=== PATIENT | female | born 1970 | race Two or more races ===

== ENCOUNTER 2018-03-14 10:29 | Outpatient (REF) | payer MEDICAID, SELFPAY ==
[2018-03-14 13:35] LABS: TSH (W/Ref FT4) 5.25 uIU/mL (0.358-3.74)
[2018-03-14 14:49] LABS: FREE T4 0.93 ng/dL (0.76-1.46)
== END 2018-03-14 10:49 ==
LOC: NCHCN 10:29
PROVIDERS: PCP Nurse Practitioner Family; Visit Provider Nurse Practitioner Family
DX: E03.9 Hypothyroidism, unspecified (principal)
CPT/HCPCS: 84439; 84443

== ENCOUNTER 2018-06-14 16:42 | Outpatient (REF) | payer MEDICAID, SELFPAY ==
[2018-06-14 19:58] LABS: TSH (W/Ref FT4) 2.61 uIU/mL (0.358-3.74)
== END 2018-06-14 17:02 ==
LOC: NCHCN 16:42
PROVIDERS: PCP Nurse Practitioner Family; Visit Provider Nurse Practitioner Family
DX: E03.9 Hypothyroidism, unspecified (principal)
CPT/HCPCS: 84443

== ENCOUNTER 2018-09-06 09:04 | Outpatient (CLI) | payer MEDICAID, SELFPAY ==
--- NOTE | 2018-09-06 14:12 | W.PREOPHP ---
Date of service: 09/06/18 Time of Service: 08:13 Assessment and Plan (1) AC (acromioclavicular) joint arthritis: Current visit: Yes Status: Deleted Patient is explained the surgical procedure typical postop course and main complication if any to be surgical site infection. She is given an overview that she will be dispensed a sling postop and discontinue this as her pain permits PT may be employed assisting her gaining range of motion or she can do home exercises like wall walks, pendulum swings or broomstick exercises.. 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 She was initially worked up with x-rays followed by an MRI that showed AC joint narrowing as the only pathology. She is gone the full gamut of conservative therapy consisting of rounds of PT, healthcare manager, home exercise plan injective therapy of AC joint and subacromial bursa all not fully resolving the pain she feels with internal rotation and any work out away from her body. Her pain impedes her active supporting life of biking running and swimming. Evaluation in Dr. Stein's office showed AC joint tenderness with palpable clicking indicating the need to decompress that joint to resolve her pain fully. Pertinent Surgical Information Denies previous medical history of: stroke, TIA, [place], use of sublingual nitroglycerin, GERD, seizures, diabetes, thyroid disease, sleep apnea, liver disease, hepatitis, hematologic disorders Denies previous complications from surgery or anesthesic agents with respect to high fever, prolonged vomiting and difficulty waking up Review of Systems Constitutional Denies fever(s) and Denies headache(s) ENT Denies headache(s), Denies nasal congestion, Denies nasal discharge and Denies sore throat Cardiovascular Denies chest pain, Denies chest pain with activity, Denies palpitations, Denies dyspnea on exertion, Denies orthopnea and Denies paroxysmal nocturnal dyspnea Respiratory Denies cough, Denies excessive phlegm production, Denies pain on inspiration and Denies dyspnea on exertion Gastrointestinal Denies abdominal pain, Denies melena, Denies hematochezia, Denies nausea and Denies vomiting Genitourinary Denies hematuria, Denies urinary frequency and Denies dysuria Comments: Denies burning sensation with urination no recent hx of excessive wheezing/sob Musculoskeletal Reports as per HPI Neurologic Denies headache(s) Psychiatric Denies anxiety and Denies depression Endocrine Denies palpitations Comments: Denies any unplanned weight changes PFSH Medical History AC (acromioclavicular) joint arthritis (Acute) History of hypothyroidism (Chronic) Asthma (Chronic) Anxiety (Chronic) Iliotibial band syndrome of left side (Resolved) Colon polyp (Acute) Gluten intolerance (Acute) Castillo neuroma (Acute) Upper back pain (Acute) Personal history of anxiety disorder (Acute) Eczema (Acute) History of fracture of upper extremity (Acute) Surgical History Status post correction of deviated nasal septum (Resolved) History of tonsillectomy (Resolved) Hx of arthroscopy of right knee (Acute) Family History Other Alcohol abuse Cancer Clotting disorder Diabetes Hyperlipidemia Hypertension Social History Smoking/Tobacco Use Status: Never Details: rare etoh< 1x month Drug use: Never Substance use type: does not use Do you feel safe in your relationship?: Yes Meds Home Medications Medication Instructions Recorded Confirmed Type Blackcohosh 1 ea PO PRN PRN 06/04/14 09/06/18 History pbadgwrs-jdogo-dat 2-C-D3-dav 1 ea PO BID 06/04/14 09/06/18 History [Cswoxnmctw-Vtsbgbujbar-Pga Tab] cnekh-bv-4-cqv-cil-nqehiut-ast 1 ea PO DAILY 06/04/14 09/06/18 History [Krill Oil 1,000 Mg Softgel] methylphenidate HCl [Concerta] 27 mg PO DAILY tab-cap 06/04/14 09/06/18 History multivitamin [Multi-Day Vitamins] 1 ea PO DAILY 06/04/14 09/06/18 History fluticasone propionate [Flovent 110 mcg INHALATION BID #2 inhaler 07/04/14 09/06/18 History 110mcg] loratadine 10 mg PO HS 07/09/14 09/06/18 History diclofenac sodium [Voltaren] 2 g TOPICAL QID script 07/24/14 09/06/18 History levalbuterol tartrate [Xopenex Hfa] 45 mcg INHALATION PRN PRN 07/30/14 09/06/18 History Ashwagandha 500 mg PO DAILY 08/13/16 09/06/18 History lorazepam 1 mg PO Q8H PRN PRN #20 tab 08/13/16 09/06/18 Rx VITAMIN D 1,000 units PO BID 09/06/18 09/06/18 History montelukast 10 mg tablet 10 mg PO QPM 09/06/18 09/06/18 History naproxen sodium [Aleve] 220 mg PO BID PRN 09/06/18 09/06/18 History rye grass extract 500 mg-quercetin tab PO tab 09/06/18 09/06/18 History 250 mg tablet vitamin B complex tablet 1 tab PO BID tab 09/06/18 09/06/18 History Allergies Allergy/AdvReac Type Severity Reaction Status Date / Time formoterol [From Dulera] Allergy Severe Anaphylaxsi Unverified 09/06/18 09:20 s latex Allergy Severe rash castle Unverified 09/06/18 09:20 mometasone furoate Allergy Severe Anaphylaxsi Unverified 09/06/18 09:20 [From Dulera] s influenza virus vaccine, Allergy Intermediate rash Unverified 09/06/18 09:20 specific vomits [influenza virus swells up vacc,specific] amoxicillin trihydrate AdvReac Intermediate vomit Unverified 09/06/18 09:20 [From Augmentin] neomycin AdvReac Intermediate blood Unverified 09/06/18 09:20 blisters potassium clavulanate AdvReac Intermediate vomit Unverified 09/06/18 09:20 [From Augmentin] Penicillins AdvReac Mild vomits Unverified 09/06/18 14:34 myocins AdvReac Intermediate vomits Uncoded 09/06/18 09:20 Exam Const General: cooperative HENMT Throat: posterior oropharynx normal Eyes General: appearance normal, both eyes and all related structures Conjunctivae: conjunctivae normal Sclera: sclerae normal Neck Neck: no JVD Carotids: normal carotid upstroke and no bruits Resp Effort & Inspection: normal respiratory effort and able to speak in complete sentences Auscultation: clear to auscultation bilaterally, no rales and no rhonchi Cardio Rate: regular rate Heart Sounds: S1 normal, S2 normal and no murmurs Bruits: no abdominal aortic bruits Pulses: normal peripheral pulses Other: No pulsatile mass noted with palpation over the abdominal aorta . had single faint exspiratory wheeze.left shoider shows full rom with excellent resisted rotator cuff strength. She has point tenderness with a palpable click overlying her AC joint. She also displays a positive scarf test and cross arm abduction test GI Palpation: soft and no hepatosplenomegaly Auscultation: normal bowel sounds General: No CVA tenderness Extrem General: no pedal edema
== END 2018-09-06 09:24 ==
PROVIDERS: PCP Nurse Practitioner Family; Visit Provider Orthopaedic Surgery
DX: Z01.818 Encounter for other preprocedural examination (principal)

== ENCOUNTER 2018-09-07 11:33 | Day surgery (SDC) | payer MEDICAID, SELFPAY ==
[2018-09-07] VITALS (7 sets, daily range): BP systolic 122–139; BP diastolic 73–80; PULSE 69–83; RESP 12–20; TEMP 36.2–36.7; O2SAT 97–100
[2018-09-07] MEDS: Lactated Ringers 1,000 ML 80 ML IV (12:20)
[2018-09-07] MEDS: ceFAZolin 2 GM/50 ML BAG IVPB (13:10)
--- NOTE | 2018-09-07 13:47 | W.PM.DSUDISC ---
Discharge Plan Disposition Patient Disposition: HOME Condition: Good Discharge Details Reason For Visit: excision L distal clavicle Attending Provider: Louis Stein Primary Care Provider: Reynaldo Gibbs Home Meds and New Rx's Prescriptions: New hydrocodone-acetaminophen 5-325 mg tablet 1 tab PO Q6H PRN (Reason: pain) Qty: 20 RF: 0 ibuprofen 800 mg tablet 800 mg PO TID Qty: 30 RF: 0 Continued vitamin B complex [B Complex-Vitamin B12] tablet 1 tab PO BID RF: 0 montelukast [Singulair] 10 mg tablet 10 mg PO QPM RF: 0 rye grass extract-quercetin 500-250 mg tablet PO RF: 0 methylphenidate HCl [Concerta] 27 MG tablet extended release 24hr 27 mg PO DAILY RF: 0 multivitamin [Multi-Day] 1 EACH tablet 1 ea PO DAILY RF: 0 Nkfeflen-Hwfxss-SUK with vit D 1 EACH tablet 1 ea PO BID RF: 0 vyogy-ov-5-lke-dws-ldzzruy-ast [krill oil] 1 EACH capsule 1 ea PO DAILY RF: 0 BLACKCOHOSH 1 ea PO PRN PRNRF: 0 Flovent HFA 12 GM HFA aerosol inhaler 110 mcg Inhalation BID Qty: 2 RF: 0 loratadine 10 MG tablet,disintegrating 10 mg PO HS RF: 0 diclofenac sodium [Voltaren] 100 GM gel 2 g Topical QID RF: 0 VITAMIN D 1,000 units PO BID RF: 0 levalbuterol tartrate [Xopenex HFA] 200 PUFF HFA aerosol inhaler 45 mcg Inhalation PRN PRNRF: 0 naproxen sodium [Aleve] 220 mg Capsule 220 mg PO BID PRNRF: 0 magnesium oxide,aspartate,citr 400 mg Capsule 400 mg PO RF: 0 bee pollen 550 mg Capsule PO RF: 0 Ashwagandha 500 mg PO DAILY RF: 0 lorazepam 1 MG tablet 1 mg PO Q8H PRN PRNQty: 20 RF: 0 Discharge Instructions Additional Instructions: Sling for comfort. Discontinue sling as soon as your discomfort allows. Apply cryocuff to L shoulder continuously overnite tonite. Tomorrow, start to use 4 times/day for 1 hour each time. May remove dressings, shower, and get incision wet after 72 hours. Leave incision uncovered when it is dry and sealed. May move and use L arm as much as your pain allows. Follow up with in 2 weeks. Take ibuprofen as prescribed for 10 days. Take hydrocodone as needed for breakthru pain. Referrals: Louis Stein MD [ [facility] STAFF PHYSICIAN] - (f/u in 2 weerks) Equipment/Supplies: Sling Activity:: Activity as Tolerated Remove Dressings/Wound Care:: 72 hours Shower/Bathe:: 72 hours Diet:: As Tolerated Discharge Orders Discharge Orders: Discharge Order (Routine); Ordered 09/07/18 Ordered By: Louis Stein DS: Diagnosis Discharge Diagnosis (1) AC (acromioclavicular) joint arthritis: Status: Acute
[2018-09-07] MEDS: fentaNYL 100 MCG/2 ML VIAL IVP ×2 (14:20→14:49)
[2018-09-07] MEDS: HYDROcodone 5/Acetaminophen 325 TAB PO (15:49)
--- NOTE | 2018-09-07 19:58 | ROE_ITS ---
DATE OF PROCEDURE: September 07, 2018 PREOPERATIVE DIAGNOSIS: DJD AC joint on the left. POSTOPERATIVE DIAGNOSIS: DJD AC joint on the left. PROCEDURE: Excision distal clavicle left. SURGEON: Louis Stein M.D. DISTRIBUTION A CLASS LINEMAN: Ciara Espinoza PA-C ANESTHESIA: General, Sridhar Preston CRNA INDICATIONS: This is a 47-year-old white female with over a year's history of left shoulder pain. T his had responded for only short periods of time to ultrasound-guided injection of her AC joint and s ubacromial space injection on the left. The pain continued to increase as time went on. MRI scan fa iled to show any rotator cuff pathology. All the pathology was in the AC joint. Excision of the dis percy clavicle was advised to alleviate her pain on a permanent basis. The risks and complications of the procedure were explained to the patient in detail preoperatively. PROCEDURE: The patient was taken to the Operating Room on 09/07/18. She was placed supine on the oper ating table and a general anesthetic was administered. She was then placed in the [facility] and the left shoulder was prepped and draped free in the usual sterile fashion. An incision was made on the superior aspect of the left shoulder centered over the AC joint. The incision was about 3 inches long. The incision was carried down through the skin and subcu to the AC joint capsule. Th e AC joint capsule was longitudinally incised and the distal clavicle was subperiosteally exposed. T he distal centimeter of the clavicle was transected and the distal end of the clavicle was excised. There was no normal articular cartilage left on the end of the distal clavicle. The resected end of the clavicle was then packed with bone wax. The wound was irrigated with saline solution. The wound margins were infiltrated with 0.5% Marcaine with epinephrine solution down to the AC joint capsule and then an additional 0.5% Marcaine with epinephrine solution was instilled into the subacro mial bursa. The AC joint capsule and periosteum over the distal clavicle were approximated with inte rrupted ddhppn-cf-sivzi sutures of #1 Vicryl suture material. The subcu was approximated with a few interrupted #2-0 Vicryl sutures, then a running subcuticular suture of #4-0 Vicryl was performed and, in addition, tissue glue was applied to complete the closure. Sterile dressings were applied. The left arm was placed in a sling. Her anesthesia was reversed without complications. She was discharg ed to the Recovery Room in good condition. The patient was discharged home from the Day Surgery Unit when fully recovered from her general anest hesia. She was given instructions to use the sling for comfort but to wean herself out of her sling as soon as discomfort subsides. She is to use a Cryo/Cuff to the left shoulder continuously overnieves willoughby. Tomorrow she will start using the Cryo/Cuff four times a day for an hour each time. She may remove her dressings, shower and get her incision wet in 72 hours. She can take ibuprofen for mi ld pain. She is given a prescription for breakthrough pain of hydrocodone/APAP 5 mg/325 mg, 1 tablet every 6 hours as needed. She is given a note to stay out of work until she returns for follow-up rama Stein in two weeks.
== END 2018-09-07 16:33 | disposition home or self-care (01) ==
PROVIDERS: PCP Nurse Practitioner Family; Visit Provider Orthopaedic Surgery
PROC: (CPT 23120; principal; 2018-09-07 13:00)
DX: M19.012 Primary osteoarthritis, left shoulder (principal)
CPT/HCPCS: 23120; 81025; J0690; J1100; J1885; J2250; J2405; J3010

== ENCOUNTER 2019-01-17 10:01 | Emergency (ER) | payer MEDICAID, SELFPAY ==
[2019-01-17] VITALS (27 sets, daily range): BP systolic 103–122; BP diastolic 54–73; PULSE 54–68; RESP 10–23; TEMP 37.1; O2SAT 96–100
--- NOTE | 2019-01-17 10:20 | ED.GENADUL_ITS ---
Discharge Plan Disposition Patient Disposition: HOME Condition: Stable Discharge Details Chief Complaint: RespSymp Clinical Impression: Chest pain Primary Care Provider: Reynaldo Gibbs ED Provider: Zeke Boyle Home Meds and New Rx's Prescriptions: No Action vitamin B complex [B Complex-Vitamin B12] tablet 1 tab PO BID RF: 0 montelukast [Singulair] 10 mg tablet 10 mg PO QPM RF: 0 rye grass extract-quercetin 500-250 mg tablet PO RF: 0 methylphenidate HCl [Concerta] 27 MG tablet extended release 24hr 27 mg PO DAILY RF: 0 multivitamin [Multi-Day] 1 EACH tablet 1 ea PO DAILY RF: 0 Lvrreaml-Nplwyq-WCN with vit D 1 EACH tablet 1 ea PO BID RF: 0 aecvd-ox-0-uaz-ynq-zntzzoy-ast [krill oil] 1 EACH capsule 1 ea PO DAILY RF: 0 BLACKCOHOSH 1 ea PO PRN PRNRF: 0 Flovent HFA 12 GM HFA aerosol inhaler 110 mcg Inhalation BID Qty: 2 RF: 0 loratadine 10 MG tablet,disintegrating 10 mg PO HS RF: 0 diclofenac sodium [Voltaren] 100 GM gel 2 g Topical QID RF: 0 VITAMIN D 1,000 units PO BID RF: 0 epinephrine [EpiPen 2-Roberto] 0.3 mg/0.3 mL auto-injector 0.3 mg IM ONCE RF: 0 levalbuterol tartrate [Xopenex HFA] 45 mcg/actuation HFA aerosol inhaler 2 inh IH Q6H RF: 0 thyroid (pork) [[place] Thyroid] 30 mg tablet 30 mg PO DAILY RF: 0 Biotene Dry Mouth Oral Rinse mouthwash 15 ml MM BID-QID PRNRF: 0 resveratrol-quercetin 100-100 mg tablet 50 tab PO DAILY RF: 0 meclizine 12.5 mg tablet,chewable 25 mg PO PRN RF: 0 desloratadine 5 mg tablet 5 mg PO DAILY RF: 0 naproxen sodium [Aleve] 220 mg Capsule 220 mg PO BID PRNRF: 0 magnesium oxide,aspartate,citr 400 mg Capsule 400 mg PO RF: 0 bee pollen 550 mg Capsule PO RF: 0 ibuprofen 800 mg tablet 800 mg PO TID Qty: 30 RF: 0 lorazepam 1 MG tablet 1 mg PO Q8H PRN PRNQty: 20 RF: 0 Discharge Instructions Instructions: Chest Pain (ED) Additional Instructions: follow up with your primary care provider within 1 week if you feel you are becoming more ill, have worsening shortness of breath or persistent vomit return to the emergency department Medical Decision Making 48 yo female with hx of bicuspid aortic valve, vestibular migraine, anxiety, who comes in feeling a sharp pain in the left anterior chest. She states she has been feeling as though she is having an allergic reaction because her throt feels as though it is closing and she may pass out. She has no new meds or foods and arrives appearing anxious HD stable. She has no rashes, no gi symptoms and clera lungs with no dyspnea, stridor or drooling and normal oropharynx with no pain over hyoid or restricted neck movements. The pain in her chest is in the left anterior and seems to worsening with palpation. she has normal vascular exam and no tearing back pain so doubt dissection. Will obtain CTA to eval for possible PE given pain is pleuritic and obtain troponin, ecg reassuring and heart score is 1. I suspect a component of anxiety given her complaints and apperaance so will also tx with ativan. She has no findings on exam to suggest anaphylaxis, rpa, well logging captain, epiglotitis. pt remains stable, sstates she feels lightheaded, labs tele and imaging all unremarkable. will obtain delta troponin and ecg repeat trop and ecg unremarkable. She remains stable. Will have her f/u with her pcp and return precautions Differential Diagnosis acs, pe, dissection, ptx Imaging Data Radiologic Study: Attestation: I personally reviewed and interpreted this imaging study as follows: Imaging: CT Scan Radiologist's impression: no acute findings per Dr. Hsieh Lab Data Lab results reviewed: Yes I reviewed the patient's lab results. ECG Data Attestation: I personally reviewed and interpreted this ECG (s) as follows: Prior ECG tracings: not available for review Interpretation: sinus rhythm, rate of 63, pr 158, no acute st t wave ischemic findings 2nd ekg shows sinus rhythm, rate of 54, no acute st tw ave changes HPI General Mode of arrival: wheelchair . Date/Time Provider Initiated Documentation: 01/17/19 10:16 . Limitations to Documentation: no limitations . Information obtained by: patient . History of Present Illness 48 year old F presents to the emergency department with the chief complaint of chest pain, described as moderate, Quality is described as stabbing, and is localized to the chest. Patient reports no radiation. No relieving factors improve symptom(s), No exacerbating factors reported . Patient did receive the following treatments prior to arrival, none Related Data Home Medications Medication Instructions Recorded Confirmed Blackcohosh 1 ea PO PRN PRN 06/04/14 11/24/18 Cijciuov-Bfogma-OPV with vit D 1 ea PO BID 06/04/14 11/24/18 vggsg-xq-8-rds-sie-ioswqrb-ast 1 ea PO DAILY 06/04/14 11/24/18 [krill oil] methylphenidate HCl [Concerta] 27 mg PO DAILY tab-cap 06/04/14 11/24/18 multivitamin [Multi-Day] 1 ea PO DAILY 06/04/14 11/24/18 Flovent HFA 110 mcg INHALATION BID #2 inhaler 07/04/14 11/24/18 loratadine 10 mg PO HS 07/09/14 11/24/18 diclofenac sodium [Voltaren] 2 g TOPICAL QID script 07/24/14 11/24/18 lorazepam 1 mg PO Q8H PRN PRN #20 tab 08/13/16 11/24/18 VITAMIN D 1,000 units PO BID 09/06/18 11/24/18 montelukast 10 mg tablet 10 mg PO QPM 09/06/18 11/24/18 naproxen sodium [Aleve] 220 mg PO BID PRN 09/06/18 11/24/18 rye grass extract 500 mg-quercetin tab PO tab 09/06/18 11/24/18 250 mg tablet vitamin B complex 1 tab PO BID tab 09/06/18 11/24/18 bee pollen mg PO 09/07/18 11/24/18 ibuprofen 800 mg PO TID #30 tab 09/07/18 11/24/18 magnesium oxide,aspartate,citr 400 mg PO 09/07/18 11/24/18 desloratadine 5 mg tablet 5 mg PO DAILY 10/25/18 11/24/18 epinephrine 0.3 mg/0.3 mL 0.3 mg IM ONCE 10/25/18 11/24/18 injection, auto-injector levalbuterol tartrate 45 2 inh IH Q6H 10/25/18 11/24/18 mcg/actuation aerosol inhaler meclizine 12.5 mg chewable tablet 25 mg PO PRN tab 10/25/18 11/24/18 resveratrol-quercetin 100 mg-100 50 tab PO DAILY tab 10/25/18 11/24/18 mg tablet saliva substitute combo no.9 15 ml MM BID-QID PRN 10/25/18 11/24/18 thyroid (pork) 30 mg tablet 30 mg PO DAILY 10/25/18 11/24/18 Previous Rx's Medication Instructions Recorded lorazepam 1 mg PO Q8H PRN PRN #20 tab 08/13/16 ibuprofen 800 mg PO TID #30 tab 09/07/18 Allergies Allergy/AdvReac Type Severity Reaction Status Date / Time formoterol [From Dulera] Allergy Severe Anaphylaxsi Unverified 01/17/19 10:38 s latex Allergy Severe rash castle Unverified 01/17/19 10:38 mometasone furoate Allergy Severe Anaphylaxsi Unverified 01/17/19 10:38 [From Dulera] s influenza virus vaccine, Allergy Intermediate rash Unverified 01/17/19 10:38 specific vomits [influenza virus swells up vacc,specific] amoxicillin trihydrate AdvReac Intermediate vomit Unverified 01/17/19 10:38 [From Augmentin] neomycin AdvReac Intermediate blood Unverified 01/17/19 10:38 blisters potassium clavulanate AdvReac Intermediate vomit Unverified 01/17/19 10:38 [From Augmentin] Penicillins AdvReac Mild vomits Unverified 01/17/19 10:38 WALNUTS Allergy Severe Uncoded 01/17/19 10:38 myocins AdvReac Intermediate vomits Uncoded 01/17/19 10:38 Review of Systems Review of Systems All systems reviewed & are unremarkable except as noted in HPI and below Constitutional Denies chills, Denies fever(s) and Denies weakness Eyes Denies loss of vision ENT Denies change in voice Cardiovascular Denies chest pain and Denies dyspnea Respiratory Denies cough and Denies dyspnea Gastrointestinal Denies abdominal pain, Denies nausea and Denies vomiting Genitourinary Denies dysuria Musculoskeletal Denies joint swelling Integumentary/Breasts Denies rash Neurologic Denies loss of vision and Denies weakness Psychiatric Denies depression Endocrine Denies cold intolerance and Denies heat intolerance Allergic/Immunologic Denies urticaria PFSH Medical History (Updated 11/24/18 @ 12:49 by Kelly Lara) Abnormal colonoscopy (Acute) AC (acromioclavicular) joint arthritis (Acute) ADD (attention deficit disorder) (Chronic) Anxiety (Chronic) Asthma (Chronic) Bicuspid aortic valve determined by imaging (Chronic) Colon polyp (Acute) Eczema (Acute) Gluten intolerance (Acute) History of fracture of upper extremity (Acute) History of hypothyroidism (Chronic) Iliotibial band syndrome of left side (Resolved) Migraine headache with aura (Chronic) Castillo neuroma (Acute) Personal history of anxiety disorder (Acute) Upper back pain (Acute) Surgical History (Updated 09/07/18 @ 11:56 by Fanta Sanchez) History of tonsillectomy (Resolved) Hx of arthroscopy of right knee (Acute) Hx of foot surgery (Acute) Status post correction of deviated nasal septum (Resolved) Family History (Updated 09/06/18 @ 09:32 by Kourtney Bro RN) Other Alcohol abuse Cancer Clotting disorder Diabetes Hyperlipidemia Hypertension Social History (Updated 11/24/18 @ 10:39 by Linda Martin LPN) Smoking/Tobacco Use Status: Never Alcohol Intake: current Alcohol Intake frequency: holidays/special occasions only Alcohol type: hard liquor Details: rare etoh< 1x month Drug use: Never Substance use type: does not use Details: alcohol, 08/21/18 Do you feel safe at home: Yes Do you feel safe in your relationship?: Yes Additional Social history: single at this time Exam Const Orientation: alert HENMT Head: normal to inspection Ears: external ears normal General nose exam: external nose normal Mouth: moist mucous membranes Eyes General: appearance normal, both eyes and all related structures Neck Neck: normal visual inspection Resp Effort & Inspection: normal respiratory effort and able to speak in complete sentences Cardio Rate: regular rate Skin General skin exam: no rashes or lesions noted Neuro General: alert and oriented x3 Extrem General: normal to inspection Psych Mental Status: mental status grossly normal
[2019-01-17] MEDS: Normal Saline Flush 10 ML SYR IVP ×2 (10:37→10:44)
[2019-01-17 10:41] LABS: Abs Immature Grans 0.01 k/cumm (0.0-0.09); Absolute Basophil Count 0.05 k/cumm (0.0-0.2); Absolute Eosinophil Count 0.17 k/cumm (0.0-0.7); Absolute Lymphocyte Count 1.89 k/cumm (1.2-3.4); Absolute Monocyte Count 0.59 k/cumm (0.11-0.7); Absolute Neutrophil Count 3.19 k/cumm (1.2-6.7); Basophils % 0.8; Eosinophils % 2.9; HCT 40.8 % (36.0-46.0); HGB 13.7 g/dL (12.0-15.5); Immature Grans % 0.2; Mean Corp. HGB Concentration 33.6 g/dL (32.0-36.0); Mean Corpuscular Hemoglobin 31.1 pg (27.0-33.0); Mean Corpuscular Volume 92.7 fL (80-95); Mean Platelet Volume 9.7 fL (8.0-11.0); Neutrophils % 54.1; Platelet Count 240 x1000/uL (130-400); RBC Distribution Width 11.8 % (11.7-14.6)
[2019-01-17] MEDS: LORazepam 2 MG/ML VIAL 0.5 MG IVP (10:43)
[2019-01-17 10:57] LABS: ALT 17 U/L (12-78); AST 10 U/L (15-37); Albumin 3.5 g/dL (3.4-5.0); Alkaline Phosphatase 54 U/L (46-116); Anion Gap 7.4 mmol/L (3-11); BUN 10 mg/dL (7-18); Bilirubin, Total 0.4 mg/dL (0.2-1.0); CO2 28.6 mmol/L (21.0-32.0); CREATININE 1.03 mg/dL (0.55-1.02); Calcium 8.8 mg/dL (8.5-10.1); Chloride 105 mmol/L (98-107); Estimated GFR 57.69 (mL/min/1.73m2); Glucose 103 mg/dL (70-100); Potassium 3.9 mmol/L (3.5-5.1); Sodium 141 mmol/L (136-145); Total Protein 6.7 g/dL (6.4-8.2)
[2019-01-17 10:58] LABS: Troponin I < 0.05 ng/mL (0.00-0.06)
[2019-01-17] MEDS: Omnipaque 350 MG/ML 100 ML BTL 63 ML IJ (11:16)
--- NOTE | 2019-01-17 11:20 | DI.CT_ITS ---
SYMPTOM/DIAGNOSIS: LEFT SIDED PLEURITIC CHEST PAIN CT ANGIOGRAPHY CHEST: 01/17 CT angiography was performed with multi slice acquisition and multi planar and 3D reconstruction. CT angiography of the chest was performed with a bolus infusion of 100 cc Omnipaque 350. Images obtained through the upper abdomen show unremarkable appearance of visualized portions of the liver, spleen, pancreas, adrenals and kidneys. Gallbladder and bile ducts are CT normal. No mediastinal mass or adenopathy. Tracheobronchial tree appears intact. Normal cardiac size. No pleural effusion. Lungs are clear. No evidence of pulmonary embolic disease. Thoracic aorta and major branch vessels are normal. CONCLUSION: No evidence of pulmonary embolic disease.
[2019-01-17 14:06] LABS: Troponin I < 0.05 ng/mL (0.00-0.06)
--- NOTE | 2019-01-18 05:08 | NUR.NOTE ---
Nursing Note: faxed referal to dr card on 01/18/19
== END 2019-01-17 14:21 | disposition home or self-care (01) ==
PROVIDERS: Emergency Provider Emergency Medicine; PCP Nurse Practitioner Family
DX: R07.81 Pleurodynia (principal); F41.9 Anxiety disorder, unspecified; Q23.1 Congenital insufficiency of aortic valve
CPT/HCPCS: 36415; 71275; 80053; 93005; 96374; 99285; 83735; 84484; 85025; 93010; J2060; J3490

== ENCOUNTER 2019-01-24 11:56 | Outpatient (CLI) | payer MEDICAID, SELFPAY ==
[2019-01-24 13:18] LABS: TSH (W/Ref FT4) 3.02 uIU/mL (0.36-3.74)
== END 2019-01-24 12:16 ==
PROVIDERS: PCP Nurse Practitioner Family; Visit Provider Nurse Practitioner Family
DX: E03.9 Hypothyroidism, unspecified (principal)
CPT/HCPCS: 36415; 84443

== ENCOUNTER 2019-03-30 16:50 | Outpatient (CLI) | payer MEDICAID, SELFPAY ==
[2019-03-30 18:33] LABS: TSH 8.11 uIU/mL (0.36-3.74)
== END 2019-03-30 17:10 ==
PROVIDERS: PCP Nurse Practitioner Family; Visit Provider Nurse Practitioner Family
DX: E03.9 Hypothyroidism, unspecified (principal)
CPT/HCPCS: 36415; 84443

== ENCOUNTER 2019-04-12 20:00 | Emergency (ER) | payer MEDICAID, SELFPAY ==
[2019-04-12] VITALS (36 sets, daily range): BP systolic 83–135; BP diastolic 60–84; PULSE 59–87; RESP 8–37; TEMP 36.5; O2SAT 95–100
--- NOTE | 2019-04-12 20:19 | W.ED.GENAD ---
Discharge Plan Disposition Patient Disposition: HOME Condition: Good Discharge Details Chief Complaint: Anxiety Clinical Impression: Panic attack, Chest pain Primary Care Provider: Reynaldo Gibbs ED Provider: Ruy Smith Home Meds and New Rx's Prescriptions: No Action vitamin B complex [B Complex-Vitamin B12] tablet 1 tab PO DAILY RF: 0 montelukast [Singulair] 10 mg tablet 10 mg PO QPM RF: 0 rye grass extract-quercetin 500-250 mg tablet PO RF: 0 methylphenidate HCl [Concerta] 27 MG tablet extended release 24hr 27 mg PO DAILY RF: 0 multivitamin [Multi-Day] 1 EACH tablet 1 ea PO DAILY RF: 0 Hwfadamm-Rigmlg-AVR with vit D 1 EACH tablet 1 ea PO BID RF: 0 riqcn-dk-9-wba-jqo-lcrpodw-ast [krill oil] 1 EACH capsule 1 ea PO DAILY RF: 0 BLACKCOHOSH 1 ea PO PRN PRNRF: 0 Flovent HFA 12 GM HFA aerosol inhaler 110 mcg Inhalation BID Qty: 2 RF: 0 loratadine 10 MG tablet,disintegrating 10 mg PO HS RF: 0 diclofenac sodium [Voltaren] 100 GM gel 2 g Topical QID RF: 0 VITAMIN D 1,000 units PO BID RF: 0 epinephrine [EpiPen 2-Roberto] 0.3 mg/0.3 mL auto-injector 0.3 mg IM ONCE RF: 0 levalbuterol tartrate [Xopenex HFA] 45 mcg/actuation HFA aerosol inhaler 2 inh IH Q6H RF: 0 thyroid (pork) [Cassandra Thyroid] 30 mg tablet 30 mg PO DAILY RF: 0 Biotene Dry Mouth Oral Rinse mouthwash 15 ml MM BID-QID PRNRF: 0 resveratrol-quercetin 100-100 mg tablet 50 tab PO DAILY RF: 0 meclizine 12.5 mg tablet,chewable 25 mg PO PRN PRN (Reason: Dizziness) RF: 0 desloratadine 5 mg tablet 5 mg PO DAILY PRN (Reason: Allergy Symptoms) RF: 0 naproxen sodium [Aleve] 220 mg Capsule 220 mg PO BID PRNRF: 0 magnesium oxide,aspartate,citr 400 mg Capsule 400 mg PO DAILY RF: 0 bee pollen 550 mg Capsule PO RF: 0 lorazepam 1 MG tablet 1 mg PO Q8H PRN PRNQty: 20 RF: 0 ibuprofen 800 mg tablet 800 mg PO TID PRN (Reason: Pain) RF: 0 Discharge Instructions Instructions: Chest Pain (ED), Panic Attack (ED) Additional Instructions: At this time your work-up shows no abnormalities for your heart. Out of an abundance of precaution we will be ordering a Holter monitor to monitor your heart to make sure that it is not a funny rhythm that is causing your symptoms of anxiety. If you notice any worsening of your symptoms, or any new symptoms such as vomiting, diarrhea, fever, chills, shortness of breath, chest pain, numbness, weakness, or fainting , please return immediately to the emergency department for reevaluation. Please follow up with your primary care provider as soon as possible for reassessment and reevaluation. As always, it was a pleasure participating in your medical care today. Referrals: Reynaldo Gibbs NP [Primary Care Provider] - Medical Decision Making This is a 48-year-old female with no significant medical problems except for mild thyroid disease, who presents today for evaluation of which she describes as a panic attack. Patient states that earlier today she began having anxiety-like symptoms, she felt panicked throughout the day, and did take 2 Lorazepam. This did significantly help her symptoms however after she took that she began to feel which she called fall out from the panic attack. She admits to mild chest pain and chest heaviness, as well as mild pleuritic chest pain. She admits to mild dizziness. She denies any syncope. She denies a family history of cardiac disease. No tearing sensation in her chest. No significant red flags for pulmonary embolism aside for her pleuritic chest pain-like symptoms. Physical exam is notably unremarkable aside from mild horizontal nystagmus. No acute neurologic deficits otherwise. No vertical or rotatory nystagmus. This time differential is broad, it may certainly be secondary to anxiety, and then the subsequent effect of lorazepam and mild dehydration, however cardiac etiology as well as PE is on the differential. EKG is relatively unremarkable aside for a small tic note at the end of the QRS complex, which is identical but certainly slightly concerning for an epsilon wave. Her EKG is otherwise unremarkable. We will rehydrate, evaluate for cardiac etiology, give 1 nitroglycerin for further assessment and re-eval. 10:07 PM Patient's laboratory work-up has returned notably unremarkable. Questionable mild dehydration, but no significant electrolyte abnormality. Troponin normal. proBNP and TSH normal. Patient's EKG is slightly atypical. We have contacted [facility] and awaiting their response for consultation of the potential atypical epsilon wave. Although her history is certainly seeming to be clinically consistent with panic attack per the patient in for her history this certainly may be just an atypical presentation of some variable type of dysrhythmia which she is interpreting is panic. 11:55 PM Patient's serial troponins are unremarkable. Serial EKGs are also unremarkable and unchanged. I did discuss EKG findings with Dr. Schroeder of [facility], and at this time she does not think that it is an epsilon wave and she feels that the EKG is just a reflection of repolarization and otherwise unremarkable. I feel that the patient signs and symptoms are likely clinically consistent with potential mild anxiety. Her chest pain chest heaviness is completely resolved. D-dimer is negative, and her signs and symptoms are inconsistent with both STEMI, ACS and PE. She feels much better after rehydration and would like to go home. At this time feel that this is certainly reasonable. Out of an abundance of precaution we will schedule the patient for Holter monitor to make sure that she does not have any typical dysrhythmia that is being misinterpreted as a panic attack. Her entire monitored time here in the ED has been unremarkable. Discussed red flags for which to return, and the importance of close follow-up with PCP. I have extensively reviewed the treatment plan and discharge instructions with the patient. I have addressed all patient concerns at this time. The patient was made aware of what symptoms to monitor for that would warrant a return to the emergency department. Discussed the plan with the patient, they demonstrate verbal understanding and agreement with our assessment and plan at this time. EKG 20: 22 Rate 67, intervals normal, sinus rhythm, no significant ST elevations or depressions aside for nonspecific repolarization less than 1 mm in V2 V3. There is a slightly atypical tic surjit noted at the end of the QRS complex which is slightly concerning for epsilon wave. No evidence of STEMI. EKG 00: 01 Rate 61, sinus rhythm, intervals normal, no significant ST elevation or depression. There is the same inverted T wave in V1. No evidence of significant epsilon wave, mild repolarization is still present in V2 and V3. No evidence of STEMI. No significant Q waves. No delta wave. FINDINGS: Lungs: Unremarkable. No consolidation. Pleural space: Unremarkable. No pleural effusion. No pneumothorax. Heart/Mediastinum: Unremarkable. No cardiomegaly. Bones/joints: Unremarkable. IMPRESSION: No acute findings. Thank you for allowing us to participate in the care of your patient. Dictated and Authenticated by: Brian Moody MD 04/12/2019 10:33 PM Eastern Time ([place] & [place]) HPI General Date/Time Provider Initiated Documentation: 04/12/19 20:02. HPI Narrative: This is a 48-year-old female with a past medical history of anxiety attacks, hypothyroidism, who presents today for evaluation of anxiety attack. Patient states that earlier today she had a significant amount of anxiety secondary to needs, requirements and obligations of the day. She took 2 lorazepam's, and this notably improved her symptoms, however she states that not long after she took it she began having the fall out of the anxiety attack. She began to develop mild chest pain, mild shortness of breath, mild dizziness. She has a mild headache as well. She denies any syncope. She did try to walk around however this did not improve her symptoms. It also did not worsen her symptoms. She states it feels like there is a mild heaviness on her chest. She does admit to mild pain with deep inspiration. Denies PE risk factors such as recent long car rides, immobilization, recent surgery, prior history of DVT or PE, family history of PE or DVT, morbid obesity, exogenous estrogen and smoking, hemoptysis, history of cancer. She denies any significant family history of cardiac disease. Dizziness is made worse by turning her head rapidly. She denies any other complaints at this time. She states that she has had symptoms similar to this in the past, however usually they do not continue to last so long. She has no other complaints at this time. No other modifying factors. Related Data Home Medications Medication Instructions Recorded Confirmed Blackcohosh 1 ea PO PRN PRN 06/04/14 04/12/19 Zrgybymu-Crvnfl-ZTK with vit D 1 ea PO BID 06/04/14 04/12/19 osopi-yy-1-zxj-pql-fwhfyra-ast 1 ea PO DAILY 06/04/14 04/12/19 [krill oil] methylphenidate HCl [Concerta] 27 mg PO DAILY tab-cap 06/04/14 04/12/19 multivitamin [Multi-Day] 1 ea PO DAILY 06/04/14 04/12/19 Flovent HFA 110 mcg INHALATION BID #2 inhaler 07/04/14 04/12/19 loratadine 10 mg PO HS 07/09/14 04/12/19 diclofenac sodium [Voltaren] 2 g TOPICAL QID script 07/24/14 04/12/19 lorazepam 1 mg PO Q8H PRN PRN #20 tab 08/13/16 04/12/19 VITAMIN D 1,000 units PO BID 09/06/18 04/12/19 montelukast 10 mg tablet 10 mg PO QPM 09/06/18 04/12/19 naproxen sodium [Aleve] 220 mg PO BID PRN 09/06/18 04/12/19 rye grass extract 500 mg-quercetin tab PO tab 09/06/18 02/02/19 250 mg tablet vitamin B complex 1 tab PO DAILY tab 09/06/18 04/12/19 bee pollen mg PO 09/07/18 02/02/19 magnesium oxide,aspartate,citr 400 mg PO DAILY 09/07/18 04/12/19 desloratadine 5 mg tablet 5 mg PO DAILY PRN 10/25/18 04/12/19 epinephrine 0.3 mg/0.3 mL 0.3 mg IM ONCE 10/25/18 04/12/19 injection, auto-injector levalbuterol tartrate 45 2 inh IH Q6H 10/25/18 04/12/19 mcg/actuation aerosol inhaler meclizine 12.5 mg chewable tablet 25 mg PO PRN PRN tab 10/25/18 04/12/19 resveratrol-quercetin 100 mg-100 50 tab PO DAILY tab 10/25/18 04/12/19 mg tablet saliva substitute combo no.9 15 ml MM BID-QID PRN 10/25/18 04/12/19 thyroid (pork) 30 mg tablet 30 mg PO DAILY 10/25/18 04/12/19 ibuprofen 800 mg PO TID PRN 04/12/19 04/12/19 Previous Rx's Medication Instructions Recorded lorazepam 1 mg PO Q8H PRN PRN #20 tab 08/13/16 Allergies Allergy/AdvReac Type Severity Reaction Status Date / Time formoterol [From Dulera] Allergy Severe Anaphylaxsi Unverified 04/12/19 21:26 s latex Allergy Severe rash castle Unverified 04/12/19 21:26 mometasone furoate Allergy Severe Anaphylaxsi Unverified 04/12/19 21:26 [From Dulera] s influenza virus vaccine, Allergy Intermediate rash Unverified 04/12/19 21:26 specific vomits [influenza virus swells up vacc,specific] amoxicillin trihydrate AdvReac Intermediate vomit Unverified 04/12/19 21:26 [From Augmentin] neomycin AdvReac Intermediate blood Unverified 04/12/19 21:26 blisters potassium clavulanate AdvReac Intermediate vomit Unverified 04/12/19 21:26 [From Augmentin] Penicillins AdvReac Mild vomits Unverified 04/12/19 21:26 WALNUTS Allergy Severe Uncoded 04/12/19 21:26 myocins AdvReac Intermediate vomits Uncoded 04/12/19 21:26 General Stated Complaint: Anxiety ARTURO: 2 Review of Systems All systems reviewed & are unremarkable except as noted in HPI and below PFSH Social History (Updated 11/24/18 @ 10:39 by Linda Martin LPN) Smoking/Tobacco Use Status: Never Alcohol Intake: current Alcohol Intake frequency: holidays/special occasions only Alcohol type: hard liquor Details: rare etoh< 1x month Drug use: Never Substance use type: does not use Details: alcohol, 08/21/18 Do you feel safe at home: Yes Do you feel safe in your relationship?: Yes Additional Social history: single at this time Exam Narrative Exam Narrative: 1.Const: Well-nourished, Well-developed, appearing stated age 2.Eyes: PERRL, no conjunctival injection, and symmetrical lids. 3.ENT: Atraumatic external nose and ears. Moist MM. Neck: Symmetric, trachea midline, No thyromegaly. 4.CVS: +S1/S2, No murmurs or gallops. Peripheral pulses 2+ and equal in all extremities. Brisk capillary refill in all extremities. 5.RESP: Unlabored respiratory effort. Clear to auscultation bilaterally. No wheezes rales or rhonchi 6.GI: Soft, Nontender/Nondistended, No hepatosplenomegaly. No guarding or rebound. 7.MSK: Normocephalic/Atraumatic, Extremities w/o deformity or ttp No cyanosis or clubbing, Normal movement of all extremities 8.Skin: Warm, Dry. No rashes or lesions. 9.Neuro: communications professor II-XII grossly intact. Sensation grossly intact, no focal neurologic deficits. All 6 cardinal planes of vision are fully intact. No evidence of rotatory or vertical nystagmus. There is horizontal nystagmus. The patient demonstrated a normal exfxlq-sdhf-cjcjok, good dexterity. There was no evidence of dysdiadochokinesia. Patient was able to ambulate without difficulty. There was no wide-based gait. Romberg, and bbmi-nw-lcav are both normal on testing. Sensation was intact bilaterally as well as muscle strength bilaterally for all extremities. Patient was able to verbalize butter cup with no slurring, or miss pronunciation. Cerebellar function testing is normal. The patient demonstrates a normal hints exam with no findings concerning for a central event. No vertical nystagmus. The head impulse test is negative for any significant central abnormality but does worsen the patient's symptoms. Normal test of skew. No suggestion of a central cerebellar event. 10.Psych: (AAO) x3. Appropriate mood and affect Course Vital Signs Vital signs: Vital Signs Temperature 36.5 C 04/12/19 20:05 Pulse 80 04/12/19 20:05 Respiratory Rate 16 04/12/19 20:05 Blood Pressure 135/75 04/12/19 20:05 Pulse Oximetry 98 04/12/19 20:05 Temperature 36.5 C 04/12/19 20:05 Temperature Source Skin 04/12/19 20:05 Pulse 80 04/12/19 20:05 Respiratory Rate 18 04/12/19 20:12 Respiratory Effort 04/12/19 20:12 Respiratory Depth Normal 04/12/19 20:12 Respiratory Pattern Normal 04/12/19 20:12 Blood Pressure 135/75 04/12/19 20:05 Blood Pressure Position Sitting 04/12/19 20:05 Pulse Oximetry 98 04/12/19 20:05 Oxygen Delivery Method Room Air 04/12/19 20:05 Oxygen Flow Rate 0 04/12/19 20:05 Pain Level 8 04/12/19 20:05
[2019-04-12] MEDS: Meclizine 25 MG TAB PO (20:30)
[2019-04-12] MEDS: Normal Saline 1,000 ML 1000 ML IV (20:37)
[2019-04-12 20:48] LABS: Abs Immature Grans 0.04 k/cumm (0.0-0.09); Absolute Basophil Count 0.01 k/cumm (0.0-0.2); Absolute Lymphocyte Count 1.42 k/cumm (1.2-3.4); Basophils % 0.1; HCT 42.8 % (36.0-46.0); HGB 14.4 g/dL (12.0-15.5); Immature Grans % 0.3; Lymphocytes % 12.1; Mean Corp. HGB Concentration 33.6 g/dL (32.0-36.0); Mean Platelet Volume 9.2 fL (8.0-11.0); Monocytes % 5.1; Neutrophils % 82.4; Platelet Count 350 x1000/uL (130-400); RBC 4.65 m/cumm (4.00-5.20); RBC Distribution Width 12.3 % (11.7-14.6); White Blood Cell Count 11.72 k/cumm (4.4-10.8)
[2019-04-12 20:49] LABS: Absolute Neutrophil Count 9.66 k/cumm (1.2-6.7)
[2019-04-12 21:15] LABS: Troponin I < 0.05 ng/mL (0.00-0.06)
[2019-04-12 21:21] LABS: Prothrombin Time 10.5 sec (9.3-11.0)
[2019-04-12 21:24] LABS: D-Dimer 119 ng/mlFEU (<500)
[2019-04-12 21:38] LABS: ALT 27 U/L (14-59); AST 12 U/L (15-37); Albumin 3.8 g/dL (3.4-5.0); Alkaline Phosphatase 67 U/L (46-116); Anion Gap 9.4 mmol/L (3-11); BUN 20 mg/dL (7-18); Bilirubin, Total 0.4 mg/dL (0.2-1.0); CO2 28.6 mmol/L (21.0-32.0); CREATININE 1.39 mg/dL (0.55-1.02); Calcium 9.3 mg/dL (8.5-10.1); Chloride 102 mmol/L (98-107); Estimated GFR 40.82 (mL/min/1.73m2); Glucose 109 mg/dL (70-100); NT-proBNP 111 pg/mL; Potassium 4.1 mmol/L (3.5-5.1); Sodium 140 mmol/L (136-145); Total Protein 7.1 g/dL (6.4-8.2)
--- NOTE | 2019-04-12 22:07 | DI.RAD_ITS ---
EXAM: XR CHEST 2V PA LATERAL XR CHEST 2V PA LATERAL CLINICAL HISTORY: chest heaviness chest heaviness TECHNIQUE: 2D digital imaging was performed. COMPARISON: CHEST 2 VIEWS PA,LAT from 10/17/2015 XR SHOULDER LEFT from 12/13/2017 FINDINGS: The heart is not enlarged. The lungs are clear and well expanded. No pleural effusion seen. Mediastin al contours appear intact. IMPRESSION: Normal chest
[2019-04-12] MEDS: Ketorolac 15 MG/ML VIAL IVP (22:12)
--- NOTE | 2019-04-12 22:33 | DI.VRAD_ITS ---
PROCEDURE INFORMATION: Exam: XR Chest, 2 Views Exam date and time: 04/12/2019 10:06 PM Clinical history: 48 years old, female; Other: Chest heaviness TECHNIQUE: Imaging protocol: XR of the chest Views: 2 views. COMPARISON: CR CHEST 2 VIEWS PA,LAT 10/17/2015 4:04 PM FINDINGS: Lungs: Unremarkable. No consolidation. Pleural space: Unremarkable. No pleural effusion. No pneumothorax. Heart/Mediastinum: Unremarkable. No cardiomegaly. Bones/joints: Unremarkable. IMPRESSION: No acute findings. Dictated and Authenticated by: Brian Moody MD. Ordering:DEREK Redmond MD
[2019-04-12 23:48] LABS: Troponin I < 0.05 ng/mL (0.00-0.06)
[2019-04-13] VITALS: BP 101/66; PULSE 65; PULSE 67; RESP 17
[2019-04-13 00:01] VITALS: PULSE 60; RESP 15
[2019-04-13 00:10] VITALS: PULSE 67; RESP 14; O2SAT 98
[2019-04-13 00:15] VITALS: BP 119/78; PULSE 63; PULSE 70; RESP 19; O2SAT 98
[2019-04-13 00:35] VITALS: BP 118/74; PULSE 64; RESP 17; TEMP 36.8; O2SAT 98
== END 2019-04-13 00:50 | disposition home or self-care (01) ==
PROVIDERS: Emergency Provider Student in an Organized Health Care Education/Training Program; PCP Nurse Practitioner Family
DX: F41.9 Anxiety disorder, unspecified (principal); R07.9 Chest pain, unspecified
CPT/HCPCS: 36415; 80053; 93005; 96361; 96374; 99285; 71046; 83880; 84443; 84484; 85025; 85379; 85610; 85730; 93010; J1885

== ENCOUNTER 2019-04-14 11:16 | Outpatient (CLI) | payer MEDICAID, SELFPAY | END 2019-04-14 11:36 | PROVIDERS: PCP Nurse Practitioner Family; Visit Provider Student in an Organized Health Care Education/Training Program | DX: F41.0 Panic disorder [episodic paroxysmal anxiety] (principal); I49.1 Atrial premature depolarization; I49.3 Ventricular premature depolarization; R00.0 Tachycardia, unspecified | CPT/HCPCS: 93225 ==

== ENCOUNTER 2019-04-17 13:56 | Outpatient (CLI) | payer SELFPAY ==
--- NOTE | 2019-04-18 08:18 | W.HOLTRPT ---
Date of service: 04/18/19 Time of Service: 08:18 Holter Monitor Report Holter Monitor Note: This is a 48-hour Holter monitor ordered for the indication of panic attacks. ?The patient was in normal sinus rhythm for the majority of the recording time. The average heart rate was 74 bpm minimum heart rate 51 bpm and maximum heart rate 123 bpm. ?There were no episodes of supraventricular tachycardia. There were rare (less than 1%) premature atrial contractions. ?There were no episodes of ventricular tachycardia. There was one single ventricular ectopic beat. ?There were no episodes of atrial fibrillation no pauses greater than 3 seconds and no episodes of high degree heart block. ?7 patient diary events were associated with sinus rhythm and sinus tachycardia.
== END 2019-04-17 14:16 ==
PROVIDERS: PCP Nurse Practitioner Family; Visit Provider Nurse Practitioner Family
DX: F41.0 Panic disorder [episodic paroxysmal anxiety] (principal); I49.1 Atrial premature depolarization; I49.3 Ventricular premature depolarization; R00.0 Tachycardia, unspecified
CPT/HCPCS: 93226

== ENCOUNTER 2019-08-08 08:44 | Outpatient (CLI) | payer SELFPAY | END 2019-08-08 09:04 | PROVIDERS: PCP Nurse Practitioner Family; Visit Provider Internal Medicine Cardiovascular Disease | DX: R94.31 Abnormal electrocardiogram [ECG] [EKG] (principal); Q23.1 Congenital insufficiency of aortic valve | CPT/HCPCS: 93005; 93010 ==

== ENCOUNTER 2020-06-18 18:50 | Outpatient (REF) | payer OTHER, SELFPAY ==
[2020-06-18 18:35] LABS: Hemoglobin A1C 5.2 % (<5.7)
[2020-06-18 18:42] LABS: BUN 16 mg/dL (7-18); CREATININE 0.99 mg/dL (0.55-1.02); Calcium 8.9 mg/dL (8.5-10.1); Calculated LDL 83 mg/dL (<100); Chloride 104 mmol/L (98-107); Cholesterol 167 mg/dL (<200); Glucose 115 mg/dL (74-106); HDL Cholesterol 71 mg/dL (40-60); Potassium 4.3 mmol/L (3.5-5.1); Sodium 141 mmol/L (136-145); TSH (W/Ref FT4) 5.12 uIU/mL (0.36-3.74); Triglyceride 67 mg/dL (<150)
[2020-06-18 19:04] LABS: FREE T4 0.81 ng/dL (0.76-1.46)
== END 2020-06-18 19:10 ==
LOC: NCHCN 18:50
PROVIDERS: PCP Nurse Practitioner Family; Visit Provider Family Medicine
DX: Z00.00 Encounter for general adult medical examination without abnormal findings (principal); E03.9 Hypothyroidism, unspecified; N28.9 Disorder of kidney and ureter, unspecified; E28.2 Polycystic ovarian syndrome; Z13.220 Encounter for screening for lipoid disorders
CPT/HCPCS: 80048; 80061; 83036; 84439; 84443

== ENCOUNTER 2020-08-29 10:47 | Outpatient (REF) | payer OTHER, SELFPAY ==
--- NOTE | 2020-08-29 10:00 | PAPFT_PTH ---
PATIENT: Harmony Valdez LOC: [facility]#:[id number] AGE/SX: 49/F ROOM: RE08/29/[address]: Reynaldo Gibbs : 1970 BED: DIS: 08/29/2020 SPEC #: [id number] RECD: 08/29/20 17:41 STATUS: ESTRELLITA GODDARD #: [id number] TK: 08/29/20 10:[address]: Reynaldo Gibbs DEPT: [facility] Cytology RECD BY: Donna Ruiz Tissues: 1 - CX/ENDOCX FOR PAP SMEARS Procedures: PAP THIN PREP/UVM Screening HPV DNA PROBE Comments: [id number]
== END 2020-08-29 10:48 | disposition home or self-care (01) ==
LOC: NCHCN 10:47
PROVIDERS: PCP Nurse Practitioner Family; Visit Provider Nurse Practitioner Family
DX: Z00.00 Encounter for general adult medical examination without abnormal findings (principal); Z12.4 Encounter for screening for malignant neoplasm of cervix; Z11.51 Encounter for screening for human papillomavirus (HPV)
CPT/HCPCS: 88142; 87624

== ENCOUNTER 2020-09-25 02:17 | Outpatient (CLI) | payer OTHER, SELFPAY ==
--- NOTE | 2020-09-25 14:01 | DI.US_ITS ---
APPROVED REPORT EXAM: Comprehensive 2D, Doppler, and color-flow Echocardiogram Patient Location: Out-Patient Color Checker Roving Or Yarn: Karli Salcedo RDCS (AE) Indications: Bicuspid aortic valve Other Information Study Quality: Adequate Conclusion Normal left ventricular wall thickness and chamber size. Estimated ejection fraction is 60 to 65%. Wall motion is normal Normal right ventricular size and systolic function The atria are normal in size The aortic valve is bicuspid with mild stenosis and trace regurgitation. Peak gradient is 26, mean 1 3 mmHg. Calculated aortic valve area is 1.35 cm?? Normal tricuspid valve with mild regurgitation Normal mitral valve with trace regurgitation Normal pulmonic valve with trace physiologic regurgitation The aortic root and ascending aorta are normal in size Wall motion Left Ventricle The left ventricle is normal size. The left ventricular systolic function is normal. The left ventric ular ejection fraction is within the normal range. There is normal left ventricular wall thickness. T here is normal LV segmental wall motion. There is no ventricular septal defect visualized. LVEF is 60 -65%. Right Ventricle The right ventricle is normal size. The right ventricular systolic function is normal. The RVSP is 34 .1mmHg. Atria The left atrium size is normal. The right atrium size is normal. The interatrial septum is intact wit h no evidence for an atrial septal defect. Aortic Valve Aortic valve is bicuspid. Mild aortic stenosis. Peak aortic valve gradient is 26.3mmHg. Highest mean aortic valve gradient is 13.3mmHg. Calculated EDILSON by the continuity equation is 1.19_cm2. Trace aorti c regurgitation. Mitral Valve The mitral valve is normal in structure. No evidence of mitral valve stenosis. Trace mitral regurgita tion. Tricuspid Valve The tricuspid valve is normal in structure. There is no tricuspid valve stenosis. Mild tricuspid regu rgitation. Pulmonic Valve The pulmonary valve is normal in structure. There is no pulmonic valvular stenosis. Trace pulmonic re gurgitation. Great Vessels The aortic root is normal in size. The ascending aorta is normal in size. Aortic arch is normal in ca liber. The IVC collapses <50% with inspiration. Pericardium There is no pericardial effusion. 2D Dimensions IVSD d PLAX 0.79 cm F: 0.6-1.0 LV Vol A2C d MOD 96.3 mL LVPW d PLAX 0.79 cm F: 0.6 - 1.0 LV Vol A4C d MOD 86.5 mL LVID d PLAX 4.12 cm F: 3.8 - 5.2 LA vol/ BSA A2C s A-L 31.8 mL/m2 LVDs 2.65 cm F: 2.2 - 3.5 LA vol/ BSA A4C s A-L 31.6 mL/m2 Ao Root d 2.34 cm F: 2.7 - 3.3 LA Vol/ BSA Biplane s A-L 32.5 mL/m2 RA Area A4C 12.79 cm2 LA Area A4C s MOD 19.28 cm2 RA Vol/ BSA A4C s A-L 16.7 mL/m2 LA Area A2C s MOD 18.85 cm2 Ao Asc Diam d 2.68 cm F: 2.3 - 3.1 LV EF A4C MOD 61.4 % LV EF Teichholz 64.4 % LV EF A2C MOD 63.0 % LVEF (Thompson's) 61.54 % F: 54 - 74 LV EF Biplane MOD 61.5 % LV Volume 71.93 mL F: 46 - 106 SV 56.78 mL LV Volume Index 40.18 mL/m2 F: 29 - 61 SV Index 31.75 mL/m2 LV Vol Biplane MOD 92.3 mL FS 34.75 % LV Diastology MV E' medial 0.120 (>0.07 m/s) E/A Ratio 1.5 LV E/e MED 7.75 (<14) MV E Vmax 0.93 (0.4-1.3 m/s) MV E' lateral 0.164 (>0.1 m/s) MV A Vmax 0.60 (0.4-1.3 m/s) LV E/e LAT 5.70 (<14) MV E/A Ratio 1.46 MV E/E' medial 7.79 MV E/E' lateral 5.70 Aortic Valve LVOT Area 2.56 cm2 AoV Area Vmax 1.19 cm2 LVOT Vmax 1.20 m/s AoV Area/ BSA (Vmax) 0.67 cm2/m2 LVOT Mean Glne. 0.82 m/s EDILSON Mean Glen. 1.22 cm2 LVOT Peak Grad 5.7 mmHg EDILSON Mean Glen. Index 0.68 cm2/m2 LVOT Mean Grad 3.1 mmHg LVOT VTI 0.280 m LVOT Diam s 1.80 cm AoV Vmax 2.57 m/s Velocity Ratio 0.46 AoV Mean Glen. 1.71 m/s AoV Peak Grad 26.3 mmHg LVOT SV 71.74 mL AoV Mean Grad 13.3 mmHg AoV VTI 0.535 m AoV Area VTI 1.34 cm2 AoV Area/ BSA (VTI) 0.75 cm/m2 Mitral Valve MV DT 207 (160-240 msec) MV PHT 60 msec MV Area PHT 3.66 cm2 MV VTI 0.185 m MV Area VTI 3.89 (4.0-6.0 cm2) Pulmonary Valve PV Vmax 1.11 (0.5-1.5 m/s) RVOT Peak Gr. 2.67 mmHg PV Peak Grad 4.9 mmHg RVOT Mean Gr. 1.50 mmHg PV Mean Grad 2.5 mmHg RVOT VTI 0.214 m PV VTI 0.260 m RVOT Vmax 0.82 m/s Tricuspid Valve TR Peak Grad 26.1 mmHg TR Vmax 2.55 m/s RA Pressure 3.00 mmHg RVSP (TR) 29.1 mmHg
== END 2020-09-25 02:37 ==
PROVIDERS: PCP Nurse Practitioner Family; Visit Provider Nurse Practitioner Family
DX: Q23.1 Congenital insufficiency of aortic valve (principal); I08.2 Rheumatic disorders of both aortic and tricuspid valves
CPT/HCPCS: 93306

== ENCOUNTER 2022-06-25 15:58 | Outpatient (REF) | payer MEDICAID, SELFPAY ==
[2022-06-25 18:11] LABS: Absolute Basophil Count 0.08 10^3/uL (0.0-0.2); Absolute Eosinophil Count 0.13 10^3/uL (0.0-0.7); Absolute Lymphocyte Count 1.88 10^3/uL (1.2-3.4); Absolute Monocyte Count 0.42 10^3/uL (0.1-0.8); Absolute Neutrophil Count 2.18 10^3/uL (1.2-6.7); Basophils % 1.7; Eosinophils % 2.8; HCT 42.8 % (36.0-46.0); HGB 14.4 g/dL (11.2-15.7); Lymphocytes % 40.1; MCH 31.6 pg (27.0-33.0); MCHC 33.6 % (32.0-36.0); MCV 94 fL (80-95); MPV 9.9 fL (8.0-11.0); Neutrophils % 46.4; Platelet Count 303 10^3/uL (130-400); RBC 4.55 10^6/uL (3.93-5.22); RDW 11.8 % (11.7-14.6); RDW-SD 40.8 fL; WBC 4.69 10^3/uL (4.4-10.8)
[2022-06-25 18:40] LABS: Iron 171 ug/dL (50-170); Total Iron Binding Capacity 289 ug/dL (250-450); Transferrin Sat 59 % (15-50)
[2022-06-25 19:00] LABS: ALT 25 U/L (14-59); AST 28 U/L (15-37); Albumin 4.1 g/dL (3.4-5.0); Alkaline Phosphatase 84 U/L (46-116); BUN 12 mg/dL (7-18); Bilirubin, Total 0.6 mg/dL (0.2-1.0); CREATININE 0.9 mg/dL (0.55-1.02); Calcium 9.2 mg/dL (8.5-10.1); Calculated LDL 99 mg/dL (<100); Chloride 104 mmol/L (98-107); Cholesterol 211 mg/dL (<200); Estimated GFR 78.37 (mL/min/1.73m2); Glucose 70 mg/dL (74-106); HDL Cholesterol 100 mg/dL (40-60); Potassium 4.3 mmol/L (3.5-5.1); Sodium 141 mmol/L (136-145); TSH (W/Ref FT4) 4.72 uIU/mL (0.36-3.74); Total Protein 7.3 g/dL (6.4-8.2); Triglyceride 62 mg/dL (<150); Vitamin B12 1772 pg/mL (193-986)
[2022-06-25 19:24] LABS: Vitamin D 25 Total 56.5 ng/mL (30-100)
[2022-06-25 19:41] LABS: FREE T4 0.79 ng/dL (0.76-1.46)
== END 2022-06-25 15:59 | disposition home or self-care (01) ==
LOC: NCHCN 15:58
PROVIDERS: Visit Provider Nurse Practitioner Family
DX: E53.8 Deficiency of other specified B group vitamins (principal); E03.9 Hypothyroidism, unspecified; N91.0 Primary amenorrhea; E55.9 Vitamin D deficiency, unspecified; Z13.220 Encounter for screening for lipoid disorders
CPT/HCPCS: 80053; 80061; 82306; 82607; 83540; 83550; 84439; 84443; 85025

== ENCOUNTER 2022-07-22 10:19 | Emergency (ER) | payer MEDICAID, SELFPAY ==
[2022-07-22] VITALS (21 sets, daily range): BP systolic 110–128; BP diastolic 62–72; PULSE 52–77; RESP 11–26; TEMP 37; O2SAT 97–100
--- NOTE | 2022-07-22 10:15 | RT.EKG_ITS ---
APPROVED REPORT Exam: Resting ECG Reason for Exam: chest pain Patient Location: E HR:68 bpm ECG Measurements Heart Rate 68 AXIS OK 170 P 66 QRSd 87 QRS 69 QT 390 T 48 QTc 417 Conclusion Sinus rhythm...normal P axis, V-rate 60- 99 Narrow complex normal sinus rhythm at a rate of 68. Normal axis. Intervals within normal limits. N o ST segment abnormalities. No T wave inversions. No prior for comparison. No acute injury pattern .
--- NOTE | 2022-07-22 10:23 | ED.GENADUL_ITS ---
Discharge Plan Disposition Patient Disposition: Home Discharge Details Clinical Impression: Chest pain Primary Care Provider: Unknown,Unknown ED Provider: Luis Alfredo Fink Home Meds and New Rx's Prescriptions: No Action vitamin B complex [B Complex-Vitamin B12] tablet 1 tab PO DAILY saffron extract 176.5 mg tablet 15 mg PO DAILY tizanidine 4 mg tablet 4 mg PO BID PRN (Reason: muscle spasticity) Qty: 60 0RF Rx Instructions: TAKE 1 TABLET BY MOUTH TWICE DAILY multivitamin [Multi-Day] 1 EACH tablet 1 ea PO DAILY Oxrcezii-Dfgkpr-VJH with vit D 1 EACH tablet 1 ea PO BID krill oil 1 EACH capsule 1 ea PO DAILY BLACKCOHOSH 1 ea PO PRN PRN Patient Comments: 07/30/14- Pt states she has not used for a couple weeks. KL loratadine 10 MG tablet,disintegrating 10 mg PO HS diclofenac sodium [Voltaren] 100 GM gel 2 g Topical QID VITAMIN D 1,000 units PO BID epinephrine [EpiPen 2-Roberto] 0.3 mg/0.3 mL auto-injector 0.3 mg IM ONCE levalbuterol tartrate [Xopenex HFA] 45 mcg/actuation HFA aerosol inhaler 2 inh IH Q6H desloratadine 5 mg tablet 5 mg PO DAILY PRN (Reason: Allergy Symptoms) magnesium oxide,aspartate,citr 400 mg Capsule 400 mg PO DAILY bee pollen 550 mg Capsule PO ibuprofen 800 mg tablet 800 mg PO TID PRN (Reason: Pain) Discharge Instructions Instructions: Chest Pain (ED) Additional Instructions: You were seen in the emergency department for your chest pain. Your blood work and your EKG showed no sign of a heart attack. As we discussed, if your pain radiates into your arm if you pass out or if you develop any fevers please return to the emergency department. Otherwise please follow-up with your primary care provider. Discharge Data Discharge Physician: Luis Alfredo Fink Medical Decision Making This is an overall very well-appearing normothermic and not tachycardic 51-year-old female with bicuspid valve and chest pain. Her ECG is nonischemic and given the duration of time since her symptoms began yesterday and given her resolved pain at the moment will obtain a single troponin and if this is negative will be reassured against ACS given her nonischemic ECG her lack of risk factors based on no hypertension no diabetes no hyperlipidemia no sig nificant family history. I considered aortic dissection however the patient's aortic outflow track is not dilated and she has had no tearing quality to her pain to suggest dissection. She does complain of some gas pains so we will treat with famotidine. She has not been vomiting to suggest esophageal rupture. No rash to chest to suggest zoster. No cough no fevers to suggest pneumonia. No positional component to suggest pericarditis. I did consider pulmonary embolism as the patient is on a Depo shot however she is not feeling shortness of breath nor is she tachycardic nor hypoxic. Given no pleuritic I felt that the risks of a D-dimer with subsequent downstream testing were outweighed by the benefits different at this point time. I considered pericarditis however her pain is not positional. 5:45 PM Troponin was negative and based on high-sensitivity assay and duration of time since symptoms began and lack of risk factors will defer trending of troponins. HPI General Date/Time Provider Initiated Documentation: 07/22/22 10:23 . HPI Narrative: This is a 51-year-old female with a history of a bicuspid aortic valve in the emergency department in setting of chest pain. Patient reports that she had a left-sided chest pain that began at approximately 11 PM last night as she was driving home. She felt as if she was punched in the chest. Her pain resolved within minutes. She was able to fall asleep on the couch but subsequently developed some sweating and some shortness of breath. She said that her pain subsequently resolved. As she was getting ready for work today she had several minutes of pain in the left side of her chest again. She did not syncopized. She has not been nauseous nor vomiting. Her pain is not a positional nor pleuritic. She never had a PE nor DVT. She is on Depo-Provera shot. She has no history of hypertension hyperlipidemia nor diabetes. There is no family history of premature coronary artery disease. Patient has not had any recent URI symptoms she denies fevers cough. She has not had any rash to her chest. Patient also has intermittently had left-sided clavicular pain for which she is followed by orthopedics. She speculates that her chest pain could be associated with her left clavicular pain. Related Data Home Medications Medication Instructions Recorded Confirmed Blackcohosh 1 ea PO PRN PRN 12/29/14 02/15/23 glucosamine 750 hv-vuuiqi-gou 2-C 1 ea PO BID 06/04/14 07/22/22 30 mg-D3 1,000 unit-dav 1 mg tablet (Xyjfbmewbht-Eksiyaobgcp-MLT + vitD) krill 1,000 mg-omega-3 170 mg-dha 1 ea PO DAILY 06/04/14 07/22/22 50 mg-epa 80 oz-cwrbhm-orovz capsule (krill oil) multivitamin (Multi-Day tablet) 1 ea PO DAILY 06/04/14 07/22/22 loratadine 10 mg disintegrating 10 mg PO HS 07/09/14 07/22/22 tablet diclofenac sodium 1 % topical gel 2 g topical QID 07/24/14 07/22/22 (Voltaren) VITAMIN D 1,000 units PO BID 09/06/18 07/22/22 vitamin B complex (B 1 tab PO DAILY 09/06/18 07/22/22 Complex-Vitamin B12 tablet) bee pollen 550 mg capsule mg PO 09/07/18 08/08/19 magnesium oxide,aspartate,citr 400 mg PO DAILY 09/07/18 07/22/22 desloratadine 5 mg tablet 5 mg PO DAILY PRN Allergy Symptoms 10/25/18 07/22/22 epinephrine 0.3 mg/0.3 mL 0.3 mg IM ONCE 10/25/18 07/22/22 injection, auto-injector (EpiPen 2-Roberto) levalbuterol tartrate 45 2 inh inhalation Q6H 10/25/18 07/22/22 mcg/actuation aerosol inhaler (Xopenex HFA) ibuprofen 800 mg tablet 800 mg PO TID PRN Pain 04/12/19 07/22/22 tizanidine 4 mg tablet 4 mg PO BID PRN muscle spasticity 07/11/19 07/22/22 #60 tabs saffron extract 176.5 mg tablet 15 mg PO DAILY 08/08/19 07/22/22 Previous Rx's Medication Instructions Recorded tizanidine 4 mg tablet 4 mg PO BID PRN muscle spasticity 07/11/19 #60 tabs Allergies Allergy/AdvReac Type Severity Reaction Status Date / Time formoterol [From Dulera] Allergy Severe Anaphylaxsi Unverified 07/22/22 10:28 s latex Allergy Severe rash castle Unverified 07/22/22 10:28 mometasone furoate Allergy Severe Anaphylaxsi Unverified 07/22/22 10:28 [From Dulera] s influenza virus vaccine, Allergy Intermediate rash Unverified 07/22/22 10:28 specific vomits [influenza virus swells up vacc,specific] amoxicillin trihydrate AdvReac Intermediate vomit Unverified 07/22/22 10:28 [From Augmentin] neomycin AdvReac Intermediate blood Unverified 07/22/22 10:28 blisters potassium clavulanate AdvReac Intermediate vomit Unverified 07/22/22 10:28 [From Augmentin] Penicillins AdvReac Mild vomits Unverified 07/22/22 10:28 WALNUTS Allergy Severe Uncoded 07/22/22 10:28 myocins AdvReac Intermediate vomits Uncoded 07/22/22 10:28 General ARTURO: 2 PFSH All Active Problems (Updated 07/22/22 @ 11:08 by Luis Alfredo Fink MD) Chest pain (Acute) Bicuspid aortic valve determined by imaging (Chronic) Scleroderma (Acute) Cervical strain (Acute) Shoulder pain (Acute) Vestibular migraine (Chronic) Lactose intolerance (Acute 07/09/14) Irritable bowel syndrome (Acute 07/09/14) Postnasal drip (Acute 09/03/14) Allergic rhinitis due to pollen (Acute 06/06/15) Allergic rhinitis (Acute 09/03/14) Allergic fungal sinusitis (Acute 05/01/13) Acquired hypothyroidism (Acute 06/08/14) Hypothyroid (Chronic) AC (acromioclavicular) joint arthritis (Acute) chronic left shoulder pain History of hypothyroidism (Chronic) presently not on any rx meds only using herbal meds Asthma (Chronic) Anxiety (Chronic) Colon polyp (Acute) Gluten intolerance (Acute) Castillo neuroma (Acute) Upper back pain (Acute) Pt states r/t L shoulder injury Medical History Abnormal colonoscopy AC (acromioclavicular) joint arthritis chronic left shoulder pain ADD (attention deficit disorder) Anxiety Asthma Bicuspid aortic valve determined by imaging Colon polyp Eczema Gluten intolerance History of fracture of upper extremity Left History of hypothyroidism presently not on any rx meds only using herbal meds Iliotibial band syndrome of left side s/p IT band repair w/ scar removal Migraine headache with aura Castillo neuroma Personal history of anxiety disorder Scleroderma Upper back pain Pt states r/t L shoulder injury Surgical History History of tonsillectomy Hx of arthroscopy of right knee Hx of foot surgery Status post correction of deviated nasal septum Family History Other Cancer Clotting disorder Diabetes ETOH abuse Hyperlipidemia Hypertension Social History Smoking/Tobacco Use Status: Never Smoking risk assessment performed?: Yes Alcohol Intake: current Alcohol Intake frequency: holidays/special occasions only Alcohol type: hard liquor Details: rare etoh< 1x month Drug use: Never Substance use type: does not use Details: alcohol, 08/21/18 What type of physical activity do you participate in: bicycling, swimming and running Duration: 30-45 minutes/day Frequency: 3-4 times per week Do you feel safe at home: Yes Do you feel safe in your relationship?: Yes Additional Social history: single at this time Exam Narrative Exam Narrative: General: Well-appearing in no acute distress speaking in complete sentences. Head: Normocephalic, atraumatic Ear, nose, mouth, throat: Grossly normal inspection. Normal voice, handling secretions normally. Neck: Trachea midline. Cardiovascular: Well-perfused distal extremities. Regular rate and rhythm no murmurs. No rash to chest. Respiratory: Nonlabored respiration. Clear lungs bilaterally. Gastrointestinal: Nondistended abdomen. Musculoskeletal: No edema. Moving all 4 extremities spontaneously. Skin: Normal for age and race, grossly normal temperature and turgor. No acute rash. Neurologic: Alert and appropriate, no apparent acute deficits. Psychiatric: Mood and manner are appropriate. Grooming and personal hygiene are appropriate. POCUS Exam (ED) Limited Cardiac Exam DATE OF EXAM: 07/22/22 TIME OF EXAM: 11:03 PROVIDER THAT PERFORMED THE STUDY: Luis Alfredo Fink REASON FOR EXAM: Other indication: Chest pain INCIDENTAL FINDINGS: Aortic outflow tract less than 4 cm, good squeeze, RV less than LV, and no significant pericardial effusion. Exam complete
--- NOTE | 2022-07-22 10:45 | DI.RAD_ITS ---
Exam(s) XR CHEST 2V PA LATERAL EXAM: XR CHEST 2V PA LATERAL CLINICAL HISTORY: cp TECHNIQUE: 2D digital imaging was performed. COMPARISON: CR,XR XR CHEST 2V PA LATERAL from 04/12/2019 FINDINGS: HEART: Normal size. Aorta: Not dilated. PULMONARY VASCULATURE: Normal. LUNGS: Clear. PLEURAL SPACE: No pleural effusion or pneumothorax. BONE:Unremarkable for age. IMPRESSION: No acute abnormality. DATA REPOSITORY: RADIATION DOSE DELIVERED:
[2022-07-22] MEDS: Famotidine 20 MG/2 ML VIAL IVP (11:10)
[2022-07-22 11:12] LABS: Abs Immature Grans 0.02 10^3/uL (0.0-0.06); Absolute Basophil Count 0.08 10^3/uL (0.0-0.2); Absolute Eosinophil Count 0.18 10^3/uL (0.0-0.7); Absolute Lymphocyte Count 2.39 10^3/uL (1.2-3.4); Absolute Monocyte Count 0.46 10^3/uL (0.1-0.8); Absolute Neutrophil Count 3.02 10^3/uL (1.2-6.7); Basophils % 1.3; Eosinophils % 2.9; HCT 42.1 % (36.0-46.0); HGB 14.1 g/dL (11.2-15.7); Immature Grans % 0.3; Lymphocytes % 38.9; MCH 31.1 pg (27.0-33.0); MCHC 33.5 % (32.0-36.0); MCV 93 fL (80-95); MPV 9.2 fL (8.0-11.0); Monocytes % 7.5; Neutrophils % 49.1; Platelet Count 310 10^3/uL (130-400); RBC 4.54 10^6/uL (3.93-5.22); RDW 11.9 % (11.7-14.6); RDW-SD 40.8 fL; WBC 6.15 10^3/uL (4.4-10.8)
[2022-07-22 11:34] LABS: HCG Qual (Serum) Negative
[2022-07-22 11:37] LABS: Anion Gap 10.5 mmol/L (3-11); BUN 12 mg/dL (7-18); CO2 25.5 mmol/L (21.0-32.0); Calcium 8.8 mg/dL (8.5-10.1); Chloride 107 mmol/L (98-107); Estimated GFR 69.06 (mL/min/1.73m2); Glucose 87 mg/dL (74-106); Potassium 3.5 mmol/L (3.5-5.1); Sodium 143 mmol/L (136-145); Troponin I < 50 ng/L (<or=60)
[2022-07-22] MEDS: Normal Saline 1,000 ML 1000 ML IV (12:02)
== END 2022-07-22 13:29 | disposition home or self-care (01) ==
PROVIDERS: Emergency Provider Emergency Medicine
DX: R07.9 Chest pain, unspecified (principal); J45.909 Unspecified asthma, uncomplicated; E03.9 Hypothyroidism, unspecified
CPT/HCPCS: 36415; 36416; 80048; 82962; 93005; 93308; 96361; 96374; 99284; 71046; 84484; 84703; 85025; 93010; 99285

== ENCOUNTER 2022-07-30 01:20 | Outpatient (CLI) | payer MEDICAID, SELFPAY ==
--- NOTE | 2022-07-30 10:30 | DI.US_ITS ---
Exam(s) US CAROTID EXAM: US CAROTID CLINICAL HISTORY: LT CAROTID BRUIT, R09.89; DIZZY SPELLS, R42. TECHNIQUE: Ultrasound carotids performed using grayscale, color-flow, and spectral Doppler imaging. COMPARISON: No exams were available for comparison FINDINGS: RIGHT CAROTID ARTERY: Plaque: Mild calcific plaque in the distal right CCA. Velocity elevation: None. LEFT CAROTID ARTERY: Plaque: Mild calcific plaque in the distal CCA and proximal ICA. Velocity elevation: None. VERTEBRAL ARTERIES: Antegrade flow. Measurements: R Bulb: 71.4cm/s PS / 21.7cm/s ED R CCA: 86.9cm/s PS / 28.1cm/s ED R ECA: 107.2cm/s PS / 15.7cm/s ED R ICA Prox: 65.3cm/s PS / 26.5cm/s ED R ICA Mid: 68cm/s PS / 33.1cm/s ED R ICA Distal: 78.8cm/s PS /33.1cm/s ED R Vert: 86cm/s PS / 19.8cm/s ED R SVR: 0.9 R DVR: 1.2 L Bulb: 69.2cm/s PS / 20.3cm/s ED L CCA: PS / 33.1cm/s ED L ECA: 98.6cm/s PS / 13.1cm/s ED L ICA Prox: 70.7cm/s PS / 31cm/s ED L ICA Mid: 74.3cm/s PS / 34.6cm/s ED L ICA Distal: 75.2cm/s PS / 33.2cm/s ED L Vert: 46.2cm/s PS / 7.7cm/s ED L SVR: 0.7 L DVR: 1 IMPRESSION: No evidence for hemodynamically significant carotid stenosis. Criteria for Carotid Stenosis: Normal: ICA PSV <125 cm/s no plaque or intimal thickening is visible. <50% stenosis: ICA PSV <125 cm/s and plaque or intimal thickening is visible. 50-69% stenosis: ICA PSV is 125-250 cm/s and plaque is visible. >70% stenosis to near occlusion: ICA PSV >250 cm/s with visible plaque and luminal narrowing. DATA REPOSITORY:
== END 2022-07-30 01:40 ==
LOC: DI 01:20
PROVIDERS: Visit Provider Nurse Practitioner Family
DX: R42 Dizziness and giddiness (principal); R09.89 Other specified symptoms and signs involving the circulatory and respiratory systems; I65.23 Occlusion and stenosis of bilateral carotid arteries
CPT/HCPCS: 93880

== ENCOUNTER 2022-08-13 13:12 | Outpatient (CLI) | payer MEDICAID, SELFPAY ==
--- NOTE | 2022-08-13 | DI.MRI_ITS ---
Exam(s) MR UPPER JOINT LT WO EXAM: MR UPPER JOINT LT WO CLINICAL HISTORY: LT SHOULDER PAIN, M25.512; RECURRENT LT SHOULDER DISLOCATION, M24.419. TECHNIQUE: Multiplanar multisequence MRI was performed. COMPARISON: Chest x-ray July 30 left clavicle 12 May 2022 FINDINGS: BONES: There is no fracture or contusion pattern. Prior distal clavicular resection. JOINTS:The acromioclavicular joint is widened related to prior distal clavicular resection. The sun ohumeral joint is normal. TENDONS: Supraspinatus: Mild thickening and intermediate signal but no focal tear. Infraspinatus: Unremarkable. Subscapularis: Unremarkable. [place]: Unremarkable. Biceps and [place]: Unremarkable. MUSCLES: Unremarkable. GLENOID LABRUM: Unremarkable on this noncontrast examination. SOFT TISSUES: Unremarkable. Metallic densities in the superior soft tissues related to prior versus surgery OTHER: Subacromial and subdeltoid bursae show no significant fluid. . IMPRESSION: Mild supraspinatus tendinosis. Prior distal clavicular resection. DATA REPOSITORY:
== END 2022-08-13 13:32 ==
LOC: DI 13:12
PROVIDERS: Visit Provider Nurse Practitioner Family
DX: M24.412 Recurrent dislocation, left shoulder (principal); M25.512 Pain in left shoulder
CPT/HCPCS: 73221

== ENCOUNTER 2022-08-25 08:20 | Outpatient (CLI) | payer MEDICAID, SELFPAY ==
--- NOTE | 2022-08-25 08:15 | RT.EKG_ITS ---
APPROVED REPORT Exam: Resting ECG Reason for Exam: cp Patient Location: O HR:54 bpm ECG Measurements Heart Rate 54 AXIS IN 154 P 58 QRSd 88 QRS 59 QT 405 T 43 QTc 384 Conclusion Sinus rhythm...normal P axis, V-rate 50- 99 Normal Electrocardiogram
== END 2022-08-25 08:21 | disposition home or self-care (01) ==
LOC: DI.CARD 08:21
PROVIDERS: PCP Nurse Practitioner Family; Visit Provider Internal Medicine Cardiovascular Disease
DX: R07.9 Chest pain, unspecified (principal)
CPT/HCPCS: 93010

== ENCOUNTER 2022-09-11 11:44 | Outpatient (CLI) | payer MEDICAID, SELFPAY ==
--- NOTE | 2022-09-11 | DI.US_ITS ---
Exam(s) US PELVIS TRANSVAGINAL EXAM: US PELVIS TRANSVAGINAL CLINICAL HISTORY: POSTMENOPAUSAL VAGINAL BLEEDING, N95; PCOS, E28.2, ? FIBROIDS OR CYST. TECHNIQUE: Transabdominal and transvaginal pelvic ultrasound was performed using standard protocol. FINDINGS: UTERUS: Position: Anteverted. Size: 6.4 long by 3.1 AP by 4.9 transverse cm Endometrium: 0.2 cm. Normal for patient's menstrual status. Myometrium: There is a 1.3 x 1.6 x 1.2 cm intramural fibroid. Cervix: Unremarkable. OVARIES: Right: 2.3 x 1.5 x 2 cm Cyst or mass: No suspicious cystic or solid masses. Left: 1.6 x 1.4 x 1.1 cm Cyst or mass: No suspicious cystic or solid masses. DOPPLER: Color: Symmetric and uniform flow to both ovaries. CUL-DE-SAC: Free fluid: None. Other: None. IMPRESSION: 1. 1.3 x 1.6 x 1.2 cm intramural uterine fibroid. 2. Endometrial stripe within normal limits at 0.2 cm. It is grossly unremarkable. 3. Unremarkable bilateral ovaries. DATA REPOSITORY:
== END 2022-09-11 12:04 ==
LOC: DI 11:44
PROVIDERS: PCP Nurse Practitioner Family; Visit Provider Physician Assistant Medical
DX: N95.0 Postmenopausal bleeding (principal); E28.2 Polycystic ovarian syndrome; D25.1 Intramural leiomyoma of uterus
CPT/HCPCS: 76830; 76856

== ENCOUNTER 2022-10-27 14:49 | Outpatient (CLI) | payer MEDICAID, SELFPAY ==
--- NOTE | 2022-10-27 14:45 | DI.RAD_ITS ---
Exam(s) XR SHOULDER LT COMPLETE 2+V EXAM: XR SHOULDER LT COMPLETE 2+V CLINICAL HISTORY: SHOULDER F/U. TECHNIQUE: 2D digital imaging was performed of the left shoulder. Three images were obtained. AP, Grashey, Y-view and axillary views were obtained. COMPARISON: CR XR STERNUM from 05/12/2022 CR XR CLAVICLE LEFT from 05/12/2022 FINDINGS: BONES: No acute fracture is present. No bony destructive lesion is seen. JOINTS: No dislocation present. There is stable widening of the acromioclavicular joint with stable i rregularity of the distal clavicle which may be posttraumatic or postsurgical in nature. The glenohu meral joint is unremarkable. SOFT TISSUE: Normal. IMPRESSION: Stable appearance of the left shoulder. DATA REPOSITORY: RADIATION DOSE DELIVERED:
== END 2022-10-27 14:50 | disposition home or self-care (01) ==
LOC: DIORS 14:50
PROVIDERS: PCP Nurse Practitioner Family; Referring Provider Nurse Practitioner Family; Visit Provider Student in an Organized Health Care Education/Training Program
DX: M19.012 Primary osteoarthritis, left shoulder (principal)
CPT/HCPCS: 73030

== ENCOUNTER 2022-11-06 00:09 | Outpatient (CLI) | payer MEDICAID, SELFPAY ==
--- NOTE | 2022-11-06 08:00 | DI.US_ITS ---
APPROVED REPORT EXAM: Comprehensive 2D, Doppler, and color-flow Echocardiogram Patient Location: Out-Patient Monogram Operator: Karli Salcedo RDCS (AE) Indications: Aortic stenosis, bicuspid aortic vallve Other Information Study Quality: Adequate Conclusion Normal left ventricular wall thickness and chamber size. Ejection fraction is 58%. Wall motion is n ormal Normal right ventricular size and systolic function Both atria are normal in size Aortic valve is mildly thickened and bicuspid. There is mild aortic stenosis. Mean gradient is 16 m mHg. Peak is 29 mmHg. Calculated aortic valve area is 1.31 cm??. There is no aortic regurgitation Aortic root and ascending aorta are normal in size Estimated right ventricular systolic pressure is 29 mmHg Wall motion Left Ventricle The left ventricle is normal size. The left ventricular systolic function is normal. The left ventric ular ejection fraction is within the normal range. There is normal left ventricular wall thickness. T here is normal LV segmental wall motion. There is no ventricular septal defect visualized. LVEF is 58 %. Right Ventricle The right ventricle is normal size. The right ventricular systolic function is normal. The RVSP is 29 .4_ mmHg. Atria The left atrium size is normal. The right atrium size is normal. The interatrial septum is intact wit h no evidence for an atrial septal defect. Aortic Valve Aortic valve is bicuspid. Mild aortic stenosis. Highest mean aortic valve gradient is 15.8mmHg. Peak aortic valve gradient is 29.2mmHg. Calculated EDILSON by the continuity equation is 1.31cm2. No aortic re gurgitation is present. Mitral Valve The mitral valve is normal in structure. No evidence of mitral valve stenosis. Trace mitral regurgita tion. Tricuspid Valve The tricuspid valve is normal in structure. There is no tricuspid valve stenosis. Trace tricuspid reg urgitation. Pulmonic Valve The pulmonary valve is normal in structure. There is no pulmonic valvular stenosis. Trace pulmonic re gurgitation. Great Vessels The aortic root is normal in size. The ascending aorta is normal in size. Aortic arch is normal in ca liber. IVC is normal in size and collapses >50% with inspiration. Pericardium There is no pericardial effusion. 2D Dimensions IVSD d PLAX 0.76 cm F: 0.6-1.0 LV Vol A2C d MOD 96.4 mL LVPW d PLAX 0.82 cm F: 0.6 - 1.0 LV Vol A4C d MOD 93.4 mL LVID d PLAX 4.14 cm F: 3.8 - 5.2 LA vol/ BSA A2C s A-L 22.2 mL/m2 LVDs 2.80 cm F: 2.2 - 3.5 LA vol/ BSA A4C s A-L 30.5 mL/m2 Ao Root d 2.48 cm F: 2.7 - 3.3 LA Vol/ BSA Biplane s A-L 28.3 mL/m2 RA Area A4C 12.60 cm2 LA Area A4C s MOD 18.67 cm2 RA Vol/ BSA A4C s A-L 17.1 mL/m2 LA Area A2C s MOD 14.65 cm2 Ao Asc Diam d 2.63 cm F: 2.3 - 3.1 LV EF A4C MOD 58.2 % LV EF Teichholz 60.4 % LV EF A2C MOD 58.2 % LVEF (Thompson's) 57.70 % F: 54 - 74 LV EF Biplane MOD 57.7 % LV Volume 75.83 mL F: 46 - 106 SV 55.47 mL LV Volume Index 43.83 mL/m2 F: 29 - 61 SV Index 32.05 mL/m2 LV Vol Biplane MOD 96.1 mL FS 31.85 % M-Mode TAPSE 2.31 cm (M/F) >1.7 LV Diastology MV E' medial 0.129 (>0.07 m/s) E/A Ratio 1.4 LV E/e MED 7.10 (<14) MV E Vmax 0.92 (0.4-1.3 m/s) MV E' lateral 0.143 (>0.1 m/s) MV A Vmax 0.65 (0.4-1.3 m/s) LV E/e LAT 6.45 (<14) MV E/A Ratio 1.35 MV E/E' medial 7.14 MV E/E' lateral 6.46 Aortic Valve LVOT Area 2.95 cm2 AoV Area Vmax 1.31 cm2 LVOT Vmax 1.20 m/s AoV Area/ BSA (Vmax) 0.76 cm2/m2 LVOT Mean Glen. 0.81 m/s EDILSON Mean Glen. 1.27 cm2 LVOT Peak Grad 5.8 mmHg EDILSON Mean Glen. Index 0.74 cm2/m2 LVOT Mean Grad 3.1 mmHg LVOT VTI 0.277 m LVOT Diam s 1.90 cm AoV Vmax 2.70 m/s Velocity Ratio 0.44 AoV Mean Glen. 1.88 m/s AoV Peak Grad 29.2 mmHg LVOT SV 81.71 mL AoV Mean Grad 15.8 mmHg AoV VTI 0.525 m AoV Area VTI 1.56 cm2 AoV Area/ BSA (VTI) 0.90 cm/m2 Mitral Valve MV DT 197 (160-240 msec) MV PHT 57 msec MV Area PHT 3.85 cm2 MV VTI 0.323 m MV Area VTI 2.53 (4.0-6.0 cm2) Pulmonary Valve PV Vmax 1.48 (0.5-1.5 m/s) RVOT Peak Gr. 3.82 mmHg PV Peak Grad 8.7 mmHg RVOT Mean Gr. 2.05 mmHg PV Mean Grad 3.9 mmHg RVOT VTI 0.207 m PV VTI 0.283 m RVOT Vmax 0.98 m/s Tricuspid Valve TR Peak Grad 26.3 mmHg TR Vmax 2.57 m/s RA Pressure 3.00 mmHg RVSP (TR) 29.4 mmHg
== END 2022-11-06 00:29 ==
LOC: DI 00:09
PROVIDERS: PCP Nurse Practitioner Family; Visit Provider Internal Medicine Cardiovascular Disease
DX: Q23.1 Congenital insufficiency of aortic valve (principal)
CPT/HCPCS: 93306

== ENCOUNTER 2023-03-24 16:18 | Outpatient (CLI) | payer MEDICAID, SELFPAY ==
[2023-03-25 19:24] LABS: FSH 78.4 mIU/mL (See Note)
== END 2023-03-24 16:19 | disposition home or self-care (01) ==
LOC: LBO 16:19
PROVIDERS: PCP Nurse Practitioner Family; Visit Provider Nurse Practitioner Women's Health
DX: N91.2 Amenorrhea, unspecified (principal)
CPT/HCPCS: 36415; 83001

== ENCOUNTER → 2023-11-23 07:45 | Outpatient (CLI) | payer MEDICAID, SELFPAY ==
--- NOTE | 2023-11-23 10:15 | DI.MAMMO_ITS ---
Exam(s) MAMMO SCREENING EXAM: MAMMO SCREENING CLINICAL HISTORY: SCREENING, Z12.39. TECHNIQUE: Bilateral full field digital CC and MLO mammographic images were obtained with 3D tomosyn thesis and utilizing computer aided detection (CAD). COMPARISON: None. This is a baseline mammogram on a 52-year-old patient FINDINGS: There are no CAD designations. There are no spiculated masses nor malignant appearing microcalcification groups. There is no significant architectural distortion nor skin thickening-retraction. IMPRESSION: No radiographic evidence of malignancy. BI-RADS Category 1 - Negative Breast Density - Category B - Scattered areas of fibroglandular density Breast density Category C or D implies that the patient has dense breast tissue. Dense breast tissue can make it harder to find cancer on a mammogram. Dense breast tissue is also associated with an incr eased risk of breast cancer. This information about the result of the mammogram report was provided to the patient to raise their awareness. Use this report when you speak with the patient about their risks for breast cancer, which includes their family history. At that time, you may recommend additional screening tests (Ultrasoun d or MRI) as these tests may add significant information. A negative radiographic report should not delay biopsy if a dominant or clinically suspicious mass is present. Up to ten percent of cancers are not identified on mammography. A negative report may reinforce clinical impression. Adenosis and dense breasts may obscure an underlying neoplasm. False positive reports average 6 to 10%. Patient will receive a letter notifying them of these results.
== END ==
PROVIDERS: PCP Nurse Practitioner Family; Visit Provider Nurse Practitioner Family
DX: Z12.31 Encounter for screening mammogram for malignant neoplasm of breast (principal)
CPT/HCPCS: 77063; 77067

== ENCOUNTER 2024-05-22 15:55 | Outpatient (CLI) | payer MEDICAID, SELFPAY ==
[2024-05-22 15:32] LABS: HCT 40.6 % (36.0-46.0); HGB 13.8 g/dL (11.2-15.7); MCH 31.3 pg (27.0-33.0); MCV 92 fL (80-95); Platelet Count 262 10^3/uL (130-400); RBC 4.41 10^6/uL (3.93-5.22); RDW 11.6 % (11.7-14.6); RDW-SD 39.4 fL; WBC 5.25 10^3/uL (4.4-10.8)
[2024-05-22 16:14] LABS: Hemoglobin A1C 5.3 % (<5.7)
[2024-05-22 16:43] LABS: ALT 24 U/L (14-59); AST 25 U/L (15-37); Albumin 3.8 g/dL (3.4-5.0); Alkaline Phosphatase 87 U/L (46-116); Anion Gap 5.1 mmol/L (3-11); BUN 21 mg/dL (7-18); Bilirubin, Total 0.53 mg/dL (0.2-1.0); CO2 31.9 mmol/L (21.0-32.0); CREATININE 1.2 mg/dL (0.55-1.02); Calcium 9.3 mg/dL (8.5-10.1); Calculated LDL 90 mg/dL (<100); Chloride 107 mmol/L (98-107); Cholesterol 185 mg/dL (<200); Glucose 82 mg/dL (74-106); HDL Cholesterol 86 mg/dL (40-60); Potassium 4.1 mmol/L (3.5-5.1); Sodium 144 mmol/L (136-145); TSH 4.71 uIU/mL (0.36-3.74); Total Protein 7.2 g/dL (6.4-8.2); Triglyceride 47 mg/dL (<150); Vitamin B12 822 pg/mL (193-986)
[2024-05-22 16:51] LABS: Folate > 20.0 ng/mL (8.6-20.0)
[2024-05-22 16:59] LABS: Vitamin D 25 Total 118.1 ng/mL (30-100)
[2024-05-22 17:20] LABS: FREE T4 0.79 ng/dL (0.76-1.46)
[2024-05-22 22:08] LABS: T3,Free 3.6 pg/mL (2.8-5.3)
[2024-05-22 22:21] LABS: T3, Total 119 ng/dL (97-169)
[2024-05-22 22:55] LABS: Thyroglobulin Antibody <15 U/mL (<=60); Thyroperoxidase Antibody <28 U/mL (<=60)
== END 2024-05-22 15:56 | disposition home or self-care (01) ==
LOC: LBO 15:57
PROVIDERS: PCP Nurse Practitioner Family; Visit Provider Nurse Practitioner Family
DX: R53.83 Other fatigue (principal); Z86.39 Personal history of other endocrine, nutritional and metabolic disease; N95.9 Unspecified menopausal and perimenopausal disorder; R63.5 Abnormal weight gain
CPT/HCPCS: 36415; 80053; 80061; 82306; 85027; 86376; 82607; 82746; 83036; 84439; 84443; 84480; 84481

== ENCOUNTER 2024-08-04 09:22 | Day surgery (SDC) | payer MEDICAID, SELFPAY ==
[2024-08-04 09:43] VITALS: BP 127/77; PULSE 59; RESP 16; TEMP 36.5; O2SAT 100
[2024-08-04] MEDS: Lactated Ringers 1,000 ML 80 ML IV (10:14)
--- NOTE | 2024-08-04 10:35 | W.ANESPRE ---
General Info Date of Service Date Performed: 08/04/24 Height: 5 ft 3 in Weight: 72.2 kg Body Mass Index (BMI): 28.2 Surgical Procedure: Operation Date: 08/04/24 10:35 Proposed Procedure Side Surgeon aliya Cameron MD Meds Allergies and Home Medications Allergies Allergy/AdvReac Type Severity Reaction Status Date / Time formoterol (From Dulera) Allergy Severe Anaphylaxsi Verified 08/04/24 10:01 s latex Allergy Severe rash castle Verified 08/04/24 10:01 mometasone furoate (From Allergy Severe Anaphylaxsi Verified 08/04/24 10:01 Dulera) s influenza virus vaccine, Allergy Intermediate rash Verified 08/04/24 10:01 specific (influenza virus vomits vacc,specific) swells up amoxicillin trihydrate (From AdvReac Intermediate vomit Verified 08/04/24 10:01 Augmentin) neomycin AdvReac Intermediate blood Verified 08/04/24 10:01 blisters potassium clavulanate (From AdvReac Intermediate vomit Verified 08/04/24 10:01 Augmentin) Penicillins AdvReac Mild vomits Verified 08/04/24 10:01 [facility]S Allergy Severe Anaphylaxis Uncoded 08/04/24 10:01 mycins Allergy Other (See Uncoded 08/04/24 10:01 Comment) myocins AdvReac Intermediate vomits Uncoded 08/04/24 10:01 Home Medication ?Medication ?Instructions ?Recorded glucosamine 750 nn-pvfwtw-qfb 2-C 1 ea PO BID 06/04/14 30 mg-D3 1,000 unit-dav 1 mg tablet (Vpcunzhovxg-Reqpvpnhqca-PWQ + vitD) krill 1,000 mg-omega-3 170 mg-dha 1 ea PO DAILY 06/04/14 50 mg-epa 80 jv-slvhpx-ffcad capsule (krill oil) multivitamin (Multi-Day tablet) 1 ea PO DAILY 06/04/14 magnesium aspart,citrate,oxide 400 mg PO DAILY 09/07/18 epinephrine 0.3 mg/0.3 mL 0.3 mg IM ONCE 10/25/18 injection, auto-injector (EpiPen 2-Roberto) ibuprofen 800 mg tablet 800 mg PO TID PRN Pain 04/12/19 saffron extract 176.5 mg tablet 15 mg PO DAILY 03/03/20 fluticasone propionate 220 2 puff inhalation BID 08/25/22 mcg/actuation HFA aerosol inhaler (Flovent HFA) levalbuterol tartrate 45 2 inh inhalation Q6H PRN 08/25/22 mcg/actuation aerosol inhaler (Xopenex HFA) fexofenadine 180 mg tablet 180 mg PO DAILY 09/15/22 (Loraine Allergy) Glycine edrzjrttw-r-gjpiapebh PO BID 09/16/22 cyanocobalamin (vitamin B-12) 500 500 mcg PO DAILY 09/16/22 mcg tablet (Vitamin B-12) lactobacillus combination no.4 3 3,000 mmu cells PO DAILY 09/16/22 billion cell capsule (Probiotic) lutein 20 mg capsule 20 mg PO DAILY 09/16/22 lysine 500 mg tablet (L-Lysine) 500 mg PO DAILY 09/16/22 quercetin 500 mg capsule mg PO 09/16/22 turkey tail mushroom PO BID 09/16/22 zinc gluconate 100 mg tablet 100 mg PO DAILY 09/16/22 ascorbic acid (vitamin C) 500 mg 1,000 mg PO Q12H 12/04/22 capsule,extended release VITAMIN D 15,000 units PO 1XD 12/29/23 bisacodyl 5 mg tablet,delayed 5 mg PO ONCE Colonoscopy Bowel 08/02/24 release Prep #4 tabs pantoprazole 40 mg tablet,delayed 40 mg PO DAILY 08/02/24 release polyethylene glycol 3350 17 238 g PO ONCE #238 grams 08/02/24 gram/dose oral powder Current Visit Medications: Current Medications Generic Name Dose Route Start Last Admin Trade Name Freq PRN Reason Stop Dose Admin Ringer's Solution 1,000 mls @ 80 mls/hr 08/04/24 06:00 08/04/24 10:14 IV 08/04/24 23:59 80 mls/hr INFUSION MERI Administration IV Miscellaneous Supplies 1 each 08/04/24 06:00 Iv Access IV 08/04/24 23:59 DIRECTED MERI Sodium Chloride 0 ml 08/04/24 06:00 Normal Saline Flush 10 Ml Syr IV 08/04/24 23:59 PRN PRN Sodium Chloride 0 ml 08/04/24 06:00 Normal Saline 10 Ml Vial IJ 08/04/24 23:59 DIRECTED PRN Sterile Water 0 ml 08/04/24 06:00 Water,Injection,Sterile 10 Ml Vial IJ 08/04/24 23:59 DIRECTED PRN PFSH Active Problems Active Problems: Problem Status Onset Code Menopause Acute Z78.0 Upper back pain Acute M54.9 Colon polyp Acute K63.5 Iliotibial band syndrome of left side Resolved M76.32 Anxiety Chronic F41.9 Asthma Chronic J45.909 AC (acromioclavicular) joint arthritis Acute M19.019 Vestibular migraine Chronic G43.109 Bicuspid aortic valve determined by imaging Chronic Q23.1 Shoulder pain Acute M25.519 Cervical strain Acute S16.1XXA Scleroderma Acute M34.9 Impingement syndrome of left shoulder Acute M75.42 Bursitis of left shoulder Acute M75.52 Pain of left sternoclavicular joint Acute M25.512 Amplified musculoskeletal pain Acute M79.18, G89.4 Pelvic pain Acute R10.2 Medical History Medical History Abnormal perimenopausal bleeding September 2022 x1 day. 2 mm endo stripe on sono. Very small fibroid ADD (attention deficit disorder) Allergic rhinitis due to pollen (06/06/15) Eczema Gluten intolerance History of fracture of upper extremity Left History of hypothyroidism presently not on any rx meds only using herbal meds Irritable bowel syndrome (07/09/14) Lactose intolerance (07/09/14) Left carotid bruit Lupus Migraine headache with aura Castillo neuroma Systolic murmur Surgical History Surgical History History of tonsillectomy Hx of arthroscopy of right knee Hx of foot surgery Status post correction of deviated nasal septum Tobacco Smoking/Tobacco Use Status: Never Alcohol Alcohol Intake: current Alcohol intake frequency: holidays/special occasions only Alcohol type: hard liquor Details: rare etoh< 1x month Substance Use Substance use: Never Substance use type: does not use Prental History History 1 Para Hx # Term Pregnancies Multiple births Hx # Pregnancies Ectopic pregnancies AB induced Hx Number of Living Children AB spontaneous 1 Vital Signs and Lab Results Vital Signs Most Recent Vital Signs in EMR: Most Recent Vital Signs Temp Pulse Resp BP Pulse Ox 36.5 C 59 L 16 127/77 100 08/04/24 09:43 08/04/24 09:43 02/28/25 09:43 08/04/24 09:43 08/04/24 09:43 Lab Results Blood Type / Crossmatch: No Data to Display Complete Blood Count: No Data to Display Complete Metabolic Panel: No Data to Display Liver Function Panel: No Data to Display Coagulation Panel: No Data to Display Cardiac Panel: No Data to Display Arterial Blood Gas: No Data to Display Venous Blood Gas: No Data to Display Pancreas Panel: No Data to Display Thyroid Panel: No Data to Display Infectious Disease: No Data to Display Blood Cultures: No Data to Display Toxicology Panel: No Data to Display Panel: No Data to Display Imaging and Studies Imaging and Studies Study information below may be from another EMR and interpreted by another provider. Please see original notes in EMR for more complete details. Other Study Summary:: All studies reviewed. Anesthesia Assessment and Plan Anesthesia History Personal History: No History of Anesthesia Complications Family History: No Family History of Anesthesia Complications Exercise Tolerance Exercise Tolerance: Metabolic Equivalents>4 Pertinent Negatives Pertinent Negatives: No Symptoms of GERD Cardiac & Pulmonary Exam Cardiac Exam: Normal S1/S2 Heart Sounds Pulmonary Exam: Clear Bilateral Breath Sounds Implantable Cardiac Device Does patient have a Pacemaker or an ICD?: No Airway Exam Known Difficult Airway: No Mallampati Class: 2 Mouth Opening: Normal (> 3cm) Thyromental Distance: Greater than 3 cm Neck Range of Motion: Full ROM Neck Circumference: Normal Teeth Condition: Normal Dentition ASA Classification ASA Score: ASA 3 Emergency Case?: No NPO Status NPO Status: NPO Clears >2 hours, Solids >8 hours Status Status: Not Relevant due to Medical History Anesthesia Plan Resuscitation Status: Full Code Anesthesia Technique: General Anesthesia Airway Planned: Natural Airway Monitors Used: Standard Monitors
[2024-08-04 11:49] VITALS: BP 102/62; PULSE 63; RESP 16; TEMP 36.6; O2SAT 99
--- NOTE | 2024-08-04 12:03 | W.COLOREPORT ---
Date of service: 08/04/24 Time of Service: 12:03 Colonoscopy Report Procedure Description: PROCEDURES PERFORMED: 1. Colonoscopy PREOPERATIVE DIAGNOSIS: Surveillance colonoscopy POSTOPERATIVE DIAGNOSIS: Normal terminal ileum, normal colon, normal rectum SURGEON: Audie Cameron MD INDICATION FOR PROCEDURE: the patient is a 53-year-old woman who reportedly had a benign polyp removed 10 years ago at her last colonoscopy. She has no complaints or symptoms of concern. No family history of colon cancer. FINDINGS: Normal terminal ileum. No colon polyps. No obvious diverticular disease anywhere. No hemorrhoid disease. SURVEILLANCE interval/FOLLOW-UP: 10 years SPECIMENS: None EBL: Minimal COMPLICATIONS: None QUALITY of prep: Excellent Procedure in detail: The patient gave written consent and was in agreement with the indications, the potential risks as well as the benefits of the procedure. She was taken to the endoscopy suite and she positioned herself on the stretcher before receiving anesthesia because of recent(more than 6 months ago) shoulder surgery. The position she chose for herself was then padded and supported from all sides with OR triangles and it was adequate positioning for performing the colonoscopy procedure. We performed a timeout and when we were in agreement anesthesia was then given. Digital rectal and visual examination was performed and grossly within normal limits. A well-lubricated flexible colonoscope was then introduced and passed without any notable difficulty all the way to the cecum identified by the ileocecal valve and the appendiceal orifice. The terminal ileum was intubated and looked normal. The scope was then slowly withdrawn and there were no significant findings. I took a second?look in the sigmoid colon because she reported that she had small diverticuli seen on her last colonoscopy, but I did not see any diverticular disease anywhere. Retroflexion was performed in the rectum with no significant findings. The patient tolerated the procedure well. She remained in the position she had chosen and which had been supported throughout the entire procedure without moving inadvertently, accidentally or purposefully. She was then taken back to [facility] in hemodynamically stable condition and had no complaints upon waking.
--- NOTE | 2024-08-04 12:10 | W.PM.DSUDISC ---
Date of service: 08/04/24 Discharge Plan Disposition Patient Disposition: Home Condition: Good Discharge Details Attending Provider: Rafa Cameron Primary Care Provider: Linda Lock Home Meds and New Rx's Prescriptions: No Action levalbuterol tartrate [Xopenex HFA] 45 mcg/actuation HFA aerosol inhaler 2 inh inhalation Q6H PRN fexofenadine [Loraine Allergy] 180 mg tablet 180 mg PO DAILY ascorbic acid (vitamin C) 500 mg capsule, extended release 1,000 mg PO Q12H cyanocobalamin (vitamin B-12) [Vitamin B-12] 500 mcg tablet 500 mcg PO DAILY turkey tail mushroom PO BID lysine [L-Lysine] 500 mg tablet 500 mg PO DAILY Probiotic 3 billion cell capsule 3,000 mmu cells PO DAILY Patient Comments: 09/16/22- pt takes women's probiotic Rx Instructions: administer with a meal lutein 20 mg capsule 20 mg PO DAILY Rx Instructions: give with meal/snack Glycine jdugbflea-u-fdnsyvmuz PO BID quercetin 500 mg capsule PO zinc gluconate 100 mg tablet 100 mg PO DAILY saffron extract 176.5 mg tablet 15 mg PO DAILY multivitamin [Multi-Day] 1 EACH tablet 1 ea PO DAILY Mdlavbth-Urthqo-XFI with vit D 1 EACH tablet 1 ea PO BID krill oil 1 EACH capsule 1 ea PO DAILY epinephrine [EpiPen 2-Roberto] 0.3 mg/0.3 mL auto-injector 0.3 mg IM ONCE fluticasone propionate [Flovent HFA] 220 mcg/actuation HFA aerosol inhaler 2 puff inhalation BID VITAMIN D 15,000 units PO 1XD bisacodyl 5 mg tablet,delayed release (DR/EC) 5 mg PO ONCE Qty: 4 0RF Rx Instructions: Per Colonoscopy bowel prep instructions polyethylene glycol 3350 17 gram/dose powder 238 g PO ONCE Qty: 238 0RF Rx Instructions: For Colonoscopy bowel prep, as directed by office magnesium aspart,citrate,oxide 400 mg Capsule 400 mg PO DAILY pantoprazole 40 mg tablet,delayed release (DR/EC) 40 mg PO DAILY ibuprofen 800 mg tablet 800 mg PO TID PRN (Reason: Pain) Discharge Instructions Additional Instructions: FINDINGS: Everything looked healthy and normal. No polyps. No diverticular disease. No hemorrhoid disease. Repeat another colonoscopy in 10 years. Activity:: Activity as Tolerated Diet:: As Tolerated
--- NOTE | 2024-08-04 12:15 | W.ANESPOSTOP ---
Postoperative Evaluation Date, Time and Location Date Performed: 08/04/24 Time Performed: 12:02 Patient Location: Day Surgery Unit Vital Signs Most Recent Imported Vital Signs: Most Recent Vital Signs Temp Pulse Resp BP Pulse Ox 36.5 C 59 L 16 127/77 100 08/04/24 09:43 08/04/24 09:43 08/04/24 09:43 08/04/24 09:43 08/04/24 09:43 Pain Score Most Recent Pain Score: Most Recent Pain Score Pain Level 0 08/04/24 09:43 Assessment Mental Status: Awake (Alert & Oriented to Patient Baseline) Airway and Respiratory Function: Patent airway with normal (patient baseline) respiratory exam Cardiovascular Function: Hemodynamically Stable Hydration Status: Adequately Hydrated Nausea & Vomiting: No Nausea or Vomiting Pain: Pt. Denies Any Pain Peripheral Nerve Block: Patient did not receive a nerve block
[2024-08-04 12:16] VITALS: BMI 28.2
[2024-08-04 12:25] VITALS: BP 94/60; PULSE 50; RESP 16; TEMP 36.5; O2SAT 100
== END 2024-08-04 12:58 | disposition home or self-care (01) ==
PROVIDERS: PCP Nurse Practitioner Family; Visit Provider Student in an Organized Health Care Education/Training Program
PROC: 0DJD8ZZ Inspection of Lower Intestinal Tract, Via Natural or Artificial Opening Endoscopic (ICD-10-PCS; CPT 45378; principal; 2024-08-04 10:30)
DX: Z12.11 Encounter for screening for malignant neoplasm of colon (principal); Z86.0100 Personal history of colon polyps, unspecified
CPT/HCPCS: 45378; J2704

== ENCOUNTER 2024-10-18 15:03 | Emergency (ER) | payer MEDICAID, SELFPAY ==
[2024-10-18 15:06] VITALS: BP 121/77; PULSE 76; RESP 16; TEMP 36.7; O2SAT 98
--- NOTE | 2024-10-18 15:30 | DI.RAD_ITS ---
Exam(s) XR FOOT RT COMPLETE EXAM: XR FOOT RT COMPLETE CLINICAL HISTORY: foot pain, dx fx with sudden in pain. TECHNIQUE: 2D digital imaging was performed. COMPARISON: DX POD Foot, R 3V (POD4) from 10/02/2024 outside images FINDINGS: 3 views No evidence of acute fracture or diastasis of the Lisfranc joint.. Great toe metatarsophalangeal ellen nt appears unremarkable. Accessory ossicles are again noted on the medial aspect of the foot adjacen t/just proximal to the navicular tuberosity. Both of these appear corticated; doubtful for acute fra ctures. There are no accessory ossicles on the lateral aspect of the foot. Metatarsals appear unremarkable with the exception of some flattening of the lateral aspect of the he ad of the 5th metatarsal which is unchanged from the prior outside images of 10/02/2024. There does not appear to be soft tissue swelling over this area nor ulcer nor radiopaque foreign body. IMPRESSION: No acute fractures. Flattening or smooth erosion on the lateral aspect of the head of the 5th metatarsal, unchanged from outside images of 10/02/2024 and not associated with obvious overlying skin ulcer, gas in soft tissue s, nor radiopaque foreign body. DATA REPOSITORY: RADIATION DOSE DELIVERED:
--- NOTE | 2024-10-18 15:57 | W.ED.GENAD ---
Discharge Plan Discharge Details Chief Complaint: Orthopedic Primary Care Provider: Linda Lock ED Provider: Rose José Home Meds and New Rx's Prescriptions: No Action levalbuterol tartrate [Xopenex HFA] 45 mcg/actuation HFA aerosol inhaler 2 inh inhalation Q6H PRN fexofenadine [Loraine Allergy] 180 mg tablet 180 mg PO DAILY ascorbic acid (vitamin C) 500 mg capsule, extended release 1,000 mg PO Q12H cyanocobalamin (vitamin B-12) [Vitamin B-12] 500 mcg tablet 500 mcg PO DAILY turkey tail mushroom 1 cap PO BID lysine [L-Lysine] 500 mg tablet 500 mg PO DAILY Probiotic 3 billion cell capsule 3,000 mmu cells PO DAILY Patient Comments: 09/16/22- pt takes women's probiotic Rx Instructions: administer with a meal lutein 20 mg capsule 20 mg PO DAILY Rx Instructions: give with meal/snack Glycine mupmysfst-f-ebuueopws 1 tab PO BID quercetin 500 mg capsule 500 mg PO DAILY zinc gluconate 100 mg tablet 100 mg PO DAILY saffron extract 176.5 mg tablet 15 mg PO DAILY multivitamin [Multi-Day] 1 EACH tablet 1 ea PO DAILY Pxudbfvu-Crbfbm-HFG with vit D 1 EACH tablet 1 ea PO BID krill oil 1 EACH capsule 1 ea PO DAILY epinephrine [EpiPen 2-Roberto] 0.3 mg/0.3 mL auto-injector 0.3 mg IM ONCE fluticasone propionate [Flovent HFA] 220 mcg/actuation HFA aerosol inhaler 2 puff inhalation BID VITAMIN D 15,000 units PO 1XD polyethylene glycol 3350 17 gram/dose powder 238 g PO ONCE Qty: 238 0RF Rx Instructions: For Colonoscopy bowel prep, as directed by office magnesium aspart,citrate,oxide 400 mg Capsule 400 mg PO DAILY pantoprazole 40 mg tablet,delayed release (DR/EC) 40 mg PO DAILY ibuprofen 800 mg tablet 800 mg PO TID PRN (Reason: Pain) HPI General Date/Time Provider Initiated Documentation: 10/18/24 15:32. HPI Narrative: Harmony is a 53-year-old female who presents to the emergency department today for evaluation of increasing pain to her fractured right foot. She reports that she had increased pain last night while wearing running shoes at work, had sharp pain while removing shoes. Her toes are extremely sensitive, reports swelling and redness to the fifth toe and base of toe since last night. She does have temporary relief from elevating icing foot for 15 minutes, followed by ibuprofen. Last night she fell asleep with the foot elevated, said pain was more severe when she woke up. Denies other joint swelling, fever/chills, general malaise. In 2011, she sustained a right foot injury, underwent surgery at [facility], initially suspected broken toe, later confirmed stress fracture. Excessive collagen and bony matter led to suspicion of autoimmune disease. Additional bone shaved off, no pins inserted. Advised to wear shoes with large toe box, which she follows. On 10/02/2024, consulted podiatry for persistent foot discomfort, more severe than usual; this was aggravated with increasing walking/jogging and training for triathlon. No recent trauma. She reports the pain pain isunder fifth toe when removing running shoes, sensation of bone protruding through skin. Pain persists despite ice and ibuprofen. X-ray confirmed stress fracture at [employer] safety [facility] office. She does have an appointment with PCP Dr. Guzman on Wednesday to discuss x-ray results and possible bone scan. 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 Related Data Home Medications ?Medication ?Instructions ?Recorded ?Confirmed glucosamine 750 vm-pwulod-wwk 2-C 1 ea PO BID 06/04/14 10/18/24 30 mg-D3 1,000 unit-dav 1 mg tablet (Iwjjxdzvrtq-Elddfbqsowh-RWK + vitD) krill 1,000 mg-omega-3 170 mg-dha 1 ea PO DAILY 06/04/14 10/18/24 50 mg-epa 80 do-jwyiug-dyjnr capsule (krill oil) multivitamin (Multi-Day tablet) 1 ea PO DAILY 06/04/14 10/18/24 magnesium aspart,citrate,oxide 400 mg PO DAILY 09/07/18 10/18/24 epinephrine 0.3 mg/0.3 mL 0.3 mg IM ONCE 10/25/18 10/18/24 injection, auto-injector (EpiPen 2-Roberto) ibuprofen 800 mg tablet 800 mg PO TID PRN Pain 04/12/19 10/18/24 saffron extract 176.5 mg tablet 15 mg PO DAILY 08/08/19 10/18/24 fluticasone propionate 220 2 puff inhalation BID 08/25/22 10/18/24 mcg/actuation HFA aerosol inhaler (Flovent HFA) levalbuterol tartrate 45 2 inh inhalation Q6H PRN 08/25/22 10/18/24 mcg/actuation aerosol inhaler (Xopenex HFA) fexofenadine 180 mg tablet 180 mg PO DAILY 09/15/22 10/18/24 (Loraine Allergy) Glycine imcfrxuje-n-pzvdkxmbv 1 tab PO BID 09/16/22 10/18/24 cyanocobalamin (vitamin B-12) 500 500 mcg PO DAILY 09/16/22 10/18/24 mcg tablet (Vitamin B-12) lactobacillus combination no.4 3 3,000 mmu cells PO DAILY 09/16/22 10/18/24 billion cell capsule (Probiotic) lutein 20 mg capsule 20 mg PO DAILY 09/16/22 10/18/24 lysine 500 mg tablet (L-Lysine) 500 mg PO DAILY 09/16/22 10/18/24 quercetin 500 mg capsule 500 mg PO DAILY 09/16/22 10/18/24 turkey tail mushroom 1 cap PO BID 09/16/22 10/18/24 zinc gluconate 100 mg tablet 100 mg PO DAILY 09/16/22 10/18/24 ascorbic acid (vitamin C) 500 mg 1,000 mg PO Q12H 12/04/22 10/18/24 capsule,extended release VITAMIN D 15,000 units PO 1XD 12/29/23 10/18/24 pantoprazole 40 mg tablet,delayed 40 mg PO DAILY 08/02/24 10/18/24 release polyethylene glycol 3350 17 238 g PO ONCE #238 grams 08/02/24 10/18/24 gram/dose oral powder Previous Rx's ?Medication ?Instructions ?Recorded polyethylene glycol 3350 17 238 g PO ONCE #238 grams 08/02/24 gram/dose oral powder Allergies Allergy/AdvReac Type Severity Reaction Status Date / Time formoterol (From Dulera) Allergy Severe Anaphylaxsi Verified 10/18/24 15:10 s latex Allergy Severe rash castle Verified 10/18/24 15:10 mometasone furoate (From Allergy Severe Anaphylaxsi Verified 10/18/24 15:10 Dulera) s influenza virus vaccine, Allergy Intermediate rash Verified 10/18/24 15:10 specific (influenza virus vomits vacc,specific) swells up amoxicillin trihydrate (From AdvReac Intermediate vomit Verified 10/18/24 15:10 Augmentin) neomycin AdvReac Intermediate blood Verified 10/18/24 15:10 blisters potassium clavulanate (From AdvReac Intermediate vomit Verified 10/18/24 15:10 Augmentin) Penicillins AdvReac Mild vomits Verified 10/18/24 15:10 WALNUTS Allergy Severe Anaphylaxis Uncoded 10/18/24 15:10 mycins Allergy Other (See Uncoded 10/18/24 15:10 Comment) myocins AdvReac Intermediate vomits Uncoded 10/18/24 15:10 General Stated Complaint: Orthopedic ARTURO: 4 Exam Narrative Exam Narrative: General Appearance: Normal. Patient is alert and oriented, no acute distress. Vital signs: Within normal limits. Respiratory: Easy work of breathing, able to speak in full sentences Extremities: Mild erythema and swelling at base of fifth metatarsal at MTP joint. No other toe swelling or joint pain. Distal pulses intact, including lateral malleolus and dorsalis pedis. Brisk cap refill to fifth digit Neurological: Sensation slightly dull to fifth toe Skin: Warm and dry, no rash. Psychiatric: Normal. Course Vital Signs Vital signs: Vital Signs Temperature 36.7 C 10/18/24 15:06 Pulse 76 10/18/24 15:06 Respiratory Rate 16 10/18/24 15:06 Blood Pressure 121/77 10/18/24 15:06 Pulse Oximetry 98 10/18/24 15:06 Temperature 36.7 C 10/18/24 15:06 Pulse 76 10/18/24 15:06 Respiratory Rate 16 10/18/24 15:06 Blood Pressure 121/77 10/18/24 15:06 Pulse Oximetry 98 10/18/24 15:06 Pain Level 10 10/18/24 15:16 Medical Decision Making ED Course: - X-ray performed; no obvious fracture on x-ray, this was confirmed by radiology - Provided walking boot to alleviate pressure. - Advised elevation, icing, Tylenol, and ibuprofen. - Recommended crutches with walking boot for mobility while keeping weight off foot. Final Assessment: Stress fracture acutely exacerbated, potentially due to unidentified incident/overuse. Treatment includes walking boot, elevation, icing, Tylenol, and ibuprofen. Clinical Impression: - Right foot stress fracture. There may be contributory inflammatory condition underlying response. No red flags concerning for systemic infection requiring emergent labs. Disposition: - Follow-Up: Schedule follow-up with [facility] systems safety engineer at earliest convenience. Follow-up with PCP as scheduled for Wednesday. Use of walking boot to take pressure off foot. MDM Components Evaluation: - Number of Differential Diagnoses or Management Options: Stress fracture. - Amount and Complexity of Data Reviewed: X-ray. - Risk of Complication and Morbidity or Mortality: Potential for worsening fracture or complications if not properly managed. Patient consented to the use of REBE[facility] Imaging Data Radiologic Study: Radiologist's impression: Exam(s) XR FOOT RT COMPLETE EXAM: XR FOOT RT COMPLETE CLINICAL HISTORY: foot pain, dx fx with sudden in pain. TECHNIQUE: 2D digital imaging was performed. COMPARISON: DX POD Foot, R 3V (POD4) from 10/02/2024 outside images FINDINGS: 3 views No evidence of acute fracture or diastasis of the Lisfranc joint.. Great toe metatarsophalangeal joint appears unremarkable. Accessory ossicles are again noted on the medial aspect of the foot adjacent/just proximal to the navicular tuberosity. Both of these appear corticated; doubtful for acute fractures. There are no accessory ossicles on the lateral aspect of the foot. Metatarsals appear unremarkable with the exception of some flattening of the lateral aspect of the head of the 5th metatarsal which is unchanged from the prior outside images of 10/02/2024. There does not appear to be soft tissue swelling over this area nor ulcer nor radiopaque foreign body. IMPRESSION: No acute fractures. Flattening or smooth erosion on the lateral aspect of the head of the 5th metatarsal, unchanged from outside images of 10/02/2024 and not associated with obvious overlying skin ulcer, gas in soft tissues, nor radiopaque foreign body. Quality:SDOH Health Related Social Needs: No Data to Display PFSH All Active Problems Menopause (Acute) Absence of menses for greater than 12 months, FSH elevated at 78. Continue to monitor. Any episodes of bleeding from this point forward, 03/29 would be postmenopausal bleeding. Upper back pain (Acute) Pt states r/t L shoulder injury Colon polyp (Acute) Anxiety (Chronic) Asthma (Chronic) AC (acromioclavicular) joint arthritis (Acute) chronic left shoulder pain Vestibular migraine (Chronic) Bicuspid aortic valve determined by imaging (Chronic) Shoulder pain (Acute) Cervical strain (Acute) Scleroderma (Acute) Impingement syndrome of left shoulder (Acute) Bursitis of left shoulder (Acute) Pain of left sternoclavicular joint (Acute) Amplified musculoskeletal pain (Acute) Pelvic pain (Acute) Medical History Abnormal perimenopausal bleeding September 2022 x1 day. 2 mm endo stripe on sono. Very small fibroid Lupus Left carotid bruit Systolic murmur ADD (attention deficit disorder) Migraine headache with aura History of hypothyroidism presently not on any rx meds only using herbal meds Eczema History of fracture of upper extremity Left Gluten intolerance Castillo neuroma Allergic rhinitis due to pollen (06/06/15) Irritable bowel syndrome (07/09/14) Lactose intolerance (07/09/14) Surgical History (Updated 08/10/24 @ 07:39 by Nany Holder) History of colonoscopy (~07/2024) 10 years Hx of foot surgery Hx of arthroscopy of right knee Status post correction of deviated nasal septum History of tonsillectomy Family History Other Cancer Clotting disorder Diabetes ETOH abuse Hyperlipidemia Hypertension Social History Smoking/Tobacco Use Status: Never Smoking risk assessment performed?: Yes Alcohol Intake: current Alcohol Intake frequency: holidays/special occasions only Alcohol type: hard liquor Details: rare etoh< 1x month Drug use: Never Substance use type: does not use Housing: house Current gender identity: female What type of physical activity do you participate in: bicycling, swimming and running Duration: 30-45 minutes/day Frequency: 3-4 times per week Do you feel safe at home: Yes Do you feel safe in your relationship?: Yes Female Reproductive History Menstrual Age of Menarche: 14 control method: progesterone injection History History 1 Para Hx # Term Pregnancies Multiple births Hx # Pregnancies Ectopic pregnancies AB induced Hx Number of Living Children AB spontaneous 1
== END 2024-10-18 16:53 | disposition home or self-care (01) ==
PROVIDERS: Emergency Provider Nurse Practitioner Family; PCP Nurse Practitioner Family
DX: M84.374D Stress fracture, right foot, subsequent encounter for fracture with routine healing (principal); X58.XXXD Exposure to other specified factors, subsequent encounter
CPT/HCPCS: 99283; 73630

== ENCOUNTER 2024-11-06 02:35 | Outpatient (CLI) | payer MEDICAID, SELFPAY ==
--- NOTE | 2024-11-06 | DI.DEXA_ITS ---
Exam(s) XR DEXA BONE DENSITY W/WO J LUIS EXAM: XR DEXA BONE DENSITY W/WO J LUIS CLINICAL HISTORY: Stress fx of metatarsal bone, rt foot, routine healing,subsequent encounter TECHNIQUE: Routine DEXA evaluation of the lumbar spine, hip, or forearm. COMPARISON: No exams were available for comparison FINDINGS: Performed on a Hologic unit. Lateral image: No compression fracture evident. Lumbar Spine total T-score: 0.5 which is a thin normal limits. Hip total T-score:-0.8 which is within normal limits. Independent reading at the level of the femoral neck yields T-score of -1.2 which is in osteopenia r rasheed. Forearm total T-score: Not performed IMPRESSION: Bone mineral density measures in the osteopenia range at the femoral neck level of the hip.. Fractur e risk is moderate. Note: Any spine fracture indicates 5x risk for subsequent spine fracture and 2x risk for subsequent h ip fracture. World Health Organization criteria for BMD interpretation classify patients: Normal...... T- Score at or above -1.0 Osteopenic... T- Score between -1.0 and -2.5 Osteoporosis... T-Score at or below -2.5
== END 2024-11-06 02:55 ==
LOC: DI 02:35
PROVIDERS: PCP Nurse Practitioner Family; Visit Provider Family Medicine
DX: M84.374D Stress fracture, right foot, subsequent encounter for fracture with routine healing (principal); M85.88 Other specified disorders of bone density and structure, other site
CPT/HCPCS: 77080

== ENCOUNTER 2024-11-15 05:03 | Outpatient (CLI) | payer MEDICAID, SELFPAY ==
[2024-11-15 10:16] LABS: ESR 1 mm/hr (0-30)
[2024-11-15 10:18] LABS: Abs Immature Grans 0.01 10^3/uL (0.0-0.06); Absolute Basophil Count 0.07 10^3/uL (0.0-0.2); Absolute Eosinophil Count 0.12 10^3/uL (0.0-0.7); Absolute Lymphocyte Count 1.98 10^3/uL (1.2-3.4); Absolute Monocyte Count 0.51 10^3/uL (0.1-0.8); Absolute Neutrophil Count 2.77 10^3/uL (1.2-6.7); Basophils % 1.3 %; Eosinophils % 2.2 %; HCT 42.4 % (36.0-46.0); HGB 13.8 g/dL (11.2-15.7); Immature Grans % 0.2 %; Lymphocytes % 36.3 %; MCH 30.5 pg (27.0-33.0); MCHC 32.5 % (32.0-36.0); MCV 94 fL (80-95); MPV 9.5 fL (8.0-11.0); Monocytes % 9.3 %; Neutrophils % 50.7 %; Platelet Count 260 10^3/uL (130-400); RBC 4.52 10^6/uL (3.93-5.22); RDW 11.8 % (11.7-14.6); RDW-SD 40.9 fL; WBC 5.46 10^3/uL (4.4-10.8)
[2024-11-15 17:27] LABS: CRP, High Sensitivity 0.51 mg/L (See Note); Rheumatoid Factor <8.6 IU/mL (<12.0)
[2024-11-16 14:43] LABS: ANA Interpretation Positive (Negative); ANA Titer Pattern 1:80 Homogeneous
== END 2024-11-15 05:04 | disposition home or self-care (01) ==
PROVIDERS: PCP Nurse Practitioner Family; Visit Provider Family Medicine
DX: R76.8 Other specified abnormal immunological findings in serum (principal)
CPT/HCPCS: 36415; 85652; 86141; 86200; 85025; 86038; 86431

== ENCOUNTER 2024-11-27 02:09 | Outpatient (CLI) | payer MEDICAID, SELFPAY ==
--- NOTE | 2024-11-27 14:30 | DI.US_ITS ---
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 Ejection fraction is 60%. Wall motion is normal Normal right ventricular size and function Both atria are normal in size The aortic valve is bicuspid. There is mild aortic stenosis. Peak gradient is 33, mean 18 mmHg. Calculated aortic valve area is 1.2 cm??. There is no aortic regurgitation Estimated right ventricular systolic pressure is 30 mmHg Wall motion Left Ventricle The left ventricle is normal size. The left ventricular systolic function is normal. The left ventricular ejection fraction is within the normal range. There is normal left ventricular wall thickness. There is normal LV segmental wall motion. There is no ventricular septal defect visualized. LVEF is 60%. Right Ventricle The right ventricle is normal size. The right ventricular systolic function is normal. Atria The left atrium size is normal. The right atrium size is normal. The interatrial septum is intact with no evidence for an atrial septal defect. Aortic Valve Aortic valve is bicuspid. Mild aortic stenosis. Highest mean aortic valve gradient is18.14_mmHg. Peak aortic valve gradient is 32.6mmHg. Calculated EDILSON by the continuity equation is 1.2cm2. No aortic regurgitation is present. Mitral Valve The mitral valve is normal in structure. No evidence of mitral valve stenosis. Trace mitral regurgitation. Tricuspid Valve The tricuspid valve is normal in structure. There is no tricuspid valve stenosis. Trace tricuspid regurgitation. The RVSP is 29.6 mmHg. Pulmonic Valve The pulmonary valve is normal in structure. There is no pulmonic valvular stenosis. There is no pulmonic valvular regurgitation. Great Vessels The aortic root is normal in size. The ascending aorta is normal in size. Aortic arch is normal in caliber. IVC is normal in size and collapses >50% with inspiration. Pericardium There is no pericardial effusion. 2D Dimensions IVSD d PLAX 0.79 cm F: 0.6-1.0 Ao Root d 2.44 cm F: 2.7 - 3.3 LVPW d PLAX 0.78 cm F: 0.6 - 1.0 LVID d PLAX 4.19 cm F: 3.8 - 5.2 LVDs 2.83 cm F: 2.2 - 3.5 LV EF Teichholz 61.2 % FS 32.49 % LV EDV (Teich) 78.0 mL LV ESV (Teich) 30.3 mL M-Mode TAPSE 2.58 cm (M/F) >1.7 Auto EF LV EDV A4C 65.3 mL LV EDV A2C 93.9 mL LV EDV BP 78.1 mL LV ESV A4C 26.1 mL LV ESV A2C 37.1 mL LV ESV BP 31.9 mL LVEF(%) A4C 60.0 % LVEF(%) A2C 60.5 % LVEF(%) BP 59.1 % LV SV A4C 39.2 ml LV SV A2C 56.8 ml LV SV BP 46.1 ml LV CO A4C 2.4 L/min LV CO A2C 3.5 L/min LV CO BP 3.0 L/min HR A4C 61.02 BPM HR A2C 62.26 BPM LV EDV Index (BP) LA Volume LA Length A4C 4.7 cm LA Length A2C 3.7 cm LA Area A4C s 12.70 cm2 LA Area A2C s 8.48 cm2 LA Vol A4C A-L 29.25 mL LA Vol A2C A-L 16.62 mL LA Vol Biplane A-L 24.9 mL LA Vol/BSA A4C A-L LA Vol/BSA A2C A-L LA Vol/BSA BP A-L 14.5 mL/m2 LA Vol A4C MOD 27.8 mL LA Vol A2C MOD 14.6 mL LA Vol BP MOD 22.7 mL RA Volume RA Area A4C 9.9 cm2 RA ESV A4C (A-L) 22.1mL RA Vol/BSA A4C A-L RA Length A4C 3.8 cm RA ESV A4C (MOD) 21.4mL LV Diastology MV E' medial 0.134 (>0.07 m/s) MV E Vmax 0.86 (0.4-1.3 m/s) MV E/E' MED 6.45 (<14) MV A Vmax 0.70 (0.4-1.3 m/s) MV E' lateral 0.154 (>0.1 m/s) E/A Ratio 1.2 MV E/E' LAT 5.59 (<14) MV E' Average 0.144 m/s MV E/E'(average) 5.99 Aortic Valve AoV Vmax 2.86 m/s LVOT Vmax 1.15 m/s AoV Peak Grad 32.6 mmHg LVOT Peak Grad 5.3 mmHg AoV Area (Vmax) 1.20 cm2 LVOT VTI 0.270 m AoV VTI 0.619 m LVOT Mean Grad 3.0 mmHg AoV Mean Glen. 1.98 m/s LVOT SV 80.54 mL AoV Mean Grad 18.1 mmHg LVOT Diam s 1.90 cm AoV Area (VTI) 1.30 cm2 AV Regurg Peak Gr. 32.60 mmHg Velocity Ratio 0.40 Mitral Valve MV DT 225 (160-240 msec) MV Vmax TIPS 0.84 m/s MV Mean Grad 0.8 (<2mmHg) MV VTI 0.264 m Pulmonary Valve PV Vmax 1.05 (0.5-1.5 m/s) RVOT Vmax 1.08 m/s PV Peak Grad 4.4 mmHg RVOT Peak Gr. 4.6 mmHg PV Mean Glen 0.74 m/s RVOT VTI 0.246 m PV Mean Grad 2.5 mmHg RVOT Mean Gr. 2.1 mmHg Tricuspid Valve RA Pressure 3.00 mmHg TR Vmax 2.58 m/s TV S' 0.14 m/s TR Peak Grad 26.6 mmHg RVSP (TR) 29.6 mmHg
== END 2024-11-27 02:29 ==
LOC: DI 02:10
PROVIDERS: PCP Nurse Practitioner Family; Visit Provider Internal Medicine Cardiovascular Disease
DX: Q23.1 Congenital insufficiency of aortic valve (principal)
CPT/HCPCS: 93306

== ENCOUNTER 2024-11-27 15:28 | Emergency (ER) | payer MEDICAID, SELFPAY ==
[2024-11-27 15:44] VITALS: BP 121/76; PULSE 63; RESP 20; TEMP 36.7; O2SAT 95
[2024-11-27] MEDS: predniSONE 20 MG TAB 40 MG PO (16:40)
[2024-11-27 17:03] LABS: COVID-19 PCR Negative (Negative); Influenza A PCR Negative (Negative); Influenza B PCR Negative (Negative); RSV PCR Negative (Negative)
[2024-11-27 17:04] LABS: Source Nasopharynx
--- NOTE | 2024-11-27 17:25 | W.ED.GENAD ---
Discharge Plan Disposition Patient Disposition: Home Condition: Stable Discharge Details Clinical Impression: Pharyngitis, URI (upper respiratory infection) Primary Care Provider: Linda Lock ED Provider: Donna Silver Home Meds and New Rx's Prescriptions: New prednisone 20 mg tablet 40 mg PO DAILY Qty: 8 0RF Continued levalbuterol tartrate [Xopenex HFA] 45 mcg/actuation HFA aerosol inhaler 2 inh inhalation Q6H PRN fexofenadine [Loraine Allergy] 180 mg tablet 180 mg PO DAILY ascorbic acid (vitamin C) 500 mg capsule, extended release 1,000 mg PO Q12H cyanocobalamin (vitamin B-12) [Vitamin B-12] 500 mcg tablet 500 mcg PO DAILY turkey tail mushroom 1 cap PO BID lysine [L-Lysine] 500 mg tablet 500 mg PO DAILY Probiotic 3 billion cell capsule 3,000 mmu cells PO DAILY Patient Comments: 09/16/22- pt takes women's probiotic Rx Instructions: administer with a meal lutein 20 mg capsule 20 mg PO DAILY Rx Instructions: give with meal/snack Glycine txpgulqte-v-jopkmmaut 1 tab PO BID quercetin 500 mg capsule 500 mg PO DAILY zinc gluconate 100 mg tablet 100 mg PO DAILY saffron extract 176.5 mg tablet 15 mg PO DAILY multivitamin [Multi-Day] 1 EACH tablet 1 ea PO DAILY Azlmette-Uibvfu-FKY with vit D 1 EACH tablet 1 ea PO BID krill oil 1 EACH capsule 1 ea PO DAILY epinephrine [EpiPen 2-Roberto] 0.3 mg/0.3 mL auto-injector 0.3 mg IM ONCE fluticasone propionate [Flovent HFA] 220 mcg/actuation HFA aerosol inhaler 2 puff inhalation BID VITAMIN D 15,000 units PO 1XD polyethylene glycol 3350 17 gram/dose powder 238 g PO ONCE Qty: 238 0RF Rx Instructions: For Colonoscopy bowel prep, as directed by office magnesium aspart,citrate,oxide 400 mg Capsule 400 mg PO DAILY pantoprazole 40 mg tablet,delayed release (DR/EC) 40 mg PO DAILY ibuprofen 800 mg tablet 800 mg PO TID PRN (Reason: Pain) Discharge Instructions Instructions: Viral Pharyngitis, Viral Upper Respiratory Infection, Adult (DC) Additional Instructions: Take Tylenol as needed for pain Take the prednisone daily for the next 4 additional days you received a dose this evening take your next dose tomorrow Popsicles regular fluids Please return earlier should you have fever, chills, difficulty swallowing secondary to globus sensation, or should any new concerns arise Your strep test today was negative we will send it for culture Your flu COVID and RSV are pending we will notify you if any of these results are positive Stand Alone Forms: Work Release Referrals: Linda Lock [Primary Care Provider, Medicine] HPI General Date/Time Provider Initiated Documentation: 11/27/24 15:57. HPI Narrative: The patient is a 53-year-old female, presenting with sore throat and upper respiratory symptoms for several days. She reports postnasal drip but denies fever, chills, chest pain, shortness of breath, dizziness, weakness, or globus sensation. Her father is currently ill with sinusitis. No possibility of . Related Data Home Medications ?Medication ?Instructions ?Recorded ?Confirmed glucosamine 750 rv-aqcjvi-ljq 2-C 1 ea PO BID 06/04/14 11/27/24 30 mg-D3 1,000 unit-dav 1 mg tablet (Kdapcnbskyt-Culebvzbqtm-JVF + vitD) krill 1,000 mg-omega-3 170 mg-dha 1 ea PO DAILY 06/04/14 11/27/24 50 mg-epa 80 wx-kpjlcu-kfzzh capsule (krill oil) multivitamin (Multi-Day tablet) 1 ea PO DAILY 06/04/14 11/27/24 magnesium aspart,citrate,oxide 400 mg PO DAILY 09/07/18 11/27/24 epinephrine 0.3 mg/0.3 mL 0.3 mg IM ONCE 10/25/18 11/27/24 injection, auto-injector (EpiPen 2-Roberto) ibuprofen 800 mg tablet 800 mg PO TID PRN Pain 04/12/19 11/27/24 saffron extract 176.5 mg tablet 15 mg PO DAILY 08/08/19 11/27/24 fluticasone propionate 220 2 puff inhalation BID 08/25/22 11/27/24 mcg/actuation HFA aerosol inhaler (Flovent HFA) levalbuterol tartrate 45 2 inh inhalation Q6H PRN 08/25/22 11/27/24 mcg/actuation aerosol inhaler (Xopenex HFA) fexofenadine 180 mg tablet 180 mg PO DAILY 09/15/22 11/27/24 (Loraine Allergy) Glycine iamdwboxe-c-hlfdibvgy 1 tab PO BID 09/16/22 11/27/24 cyanocobalamin (vitamin B-12) 500 500 mcg PO DAILY 09/16/22 11/27/24 mcg tablet (Vitamin B-12) lactobacillus combination no.4 3 3,000 mmu cells PO DAILY 09/16/22 11/27/24 billion cell capsule (Probiotic) lutein 20 mg capsule 20 mg PO DAILY 09/16/22 11/27/24 lysine 500 mg tablet (L-Lysine) 500 mg PO DAILY 09/16/22 11/27/24 quercetin 500 mg capsule 500 mg PO DAILY 09/16/22 11/27/24 turkey tail mushroom 1 cap PO BID 09/16/22 11/27/24 zinc gluconate 100 mg tablet 100 mg PO DAILY 09/16/22 11/27/24 ascorbic acid (vitamin C) 500 mg 1,000 mg PO Q12H 12/04/22 11/27/24 capsule,extended release VITAMIN D 15,000 units PO 1XD 12/29/23 11/27/24 pantoprazole 40 mg tablet,delayed 40 mg PO DAILY 08/02/24 11/27/24 release polyethylene glycol 3350 17 238 g PO ONCE #238 grams 08/02/24 11/27/24 gram/dose oral powder prednisone 20 mg tablet 40 mg (2 x 20 mg) PO DAILY #8 tabs 11/27/24 Previous Rx's ?Medication ?Instructions ?Recorded polyethylene glycol 3350 17 238 g PO ONCE #238 grams 08/02/24 gram/dose oral powder prednisone 20 mg tablet 40 mg (2 x 20 mg) PO DAILY #8 tabs 11/27/24 Allergies Allergy/AdvReac Type Severity Reaction Status Date / Time formoterol (From Dulera) Allergy Severe Anaphylaxsi Verified 11/27/24 15:41 s latex Allergy Severe rash castle Verified 11/27/24 15:41 mometasone furoate (From Allergy Severe Anaphylaxsi Verified 11/27/24 15:41 Dulera) s influenza virus vaccine, Allergy Intermediate rash Verified 11/27/24 15:41 specific (influenza virus vomits vacc,specific) swells up amoxicillin trihydrate (From AdvReac Intermediate vomit Verified 11/27/24 15:41 Augmentin) neomycin AdvReac Intermediate blood Verified 11/27/24 15:41 blisters potassium clavulanate (From AdvReac Intermediate vomit Verified 11/27/24 15:41 Augmentin) Penicillins AdvReac Mild vomits Verified 11/27/24 15:41 WALNUTS Allergy Severe Anaphylaxis Uncoded 11/27/24 15:41 mycins Allergy Other (See Uncoded 11/27/24 15:41 Comment) myocins AdvReac Intermediate vomits Uncoded 11/27/24 15:41 General Stated Complaint: Sorethroat ARTURO: 4 Exam Narrative Exam Narrative: General Appearance: Alert and oriented, in no acute distress. Vital signs: Within normal limits. HEENT: Status post tonsillectomy. Oropharynx patent, uvula midline, no retropharyngeal abscess, normal phonation, no submandibular lymphadenopathy, no trismus. Tympanic membranes clear bilaterally. Respiratory: Lungs clear to auscultation. Cardiovascular: Cardiac rate and rhythm regular. Skin: Warm and dry, no rash. Neurological: Normal. Course Vital Signs Vital signs: Vital Signs Temperature 36.7 C 11/27/24 15:44 Pulse 63 11/27/24 15:44 Respiratory Rate 20 11/27/24 15:44 Blood Pressure 121/76 11/27/24 15:44 Pulse Oximetry 95 11/27/24 15:44 Temperature 36.7 C 11/27/24 15:44 Temperature Source Oral 11/27/24 15:44 Pulse 63 11/27/24 15:44 Respiratory Rate 20 11/27/24 15:44 Blood Pressure 121/76 11/27/24 15:44 Blood Pressure Position Sitting 11/27/24 15:44 Pulse Oximetry 95 11/27/24 15:44 Oxygen Delivery Method Room Air 11/27/24 15:44 Oxygen Flow Rate 0 11/27/24 15:44 Pain Level 7 11/27/24 15:44 Lab/Test Results Lab/Test Results: 11/27/24 15:46 Tonsil - Not Specified Group A Streptococcus Culture - Pending Laboratory Tests Range/Units 11/27/24 15:46 COVID-19 Source Nasopharynx SARS-CoV-2 (PCR) (Negative) Negative Influenza Type A (PCR) (Negative) Negative Influenza Type B (PCR) (Negative) Negative RSV (PCR) (Negative) Negative POC Strep Test-MADELINE(Rapid) Start: 11/27/24 16:12 Freq: .Rapid Strep Test Status: Active Protocol: Document 11/27/24 16:36 (Rec: 11/27/24 16:36 [id number]) Strep test-MADELINE(Rapid)-POC POC-Strep test-MADELINE ( Negative Rapid) POC-Strep test-MADELINE (Rapid) Negative Medical Decision Making Results: Strep test negative. Influenza, COVID-19, and RSV negative. Initial Assessment: 53-year-old female with sore throat and upper respiratory symptoms for several days. Denies fever, chills, chest pain, shortness of breath, dizziness, weakness, globus sensation, and . Postnasal drip noted. Father reportedly sick with sinusitis. Patient alert and oriented, in no acute distress. Status post tonsillectomy. Oropharynx patent, uvula midline. No retropharyngeal abscess, normal phonation, no submandibular lymphadenopathy, no trismus. TMs clear bilaterally. Lungs clear to auscultation. Cardiac rate, rhythm regular. ED Course: - Strep test negative. - Flu, COVID, and RSV negative. - Suspect upper respiratory infection and viral pharyngitis. - Treat with prednisone for the next several days. - Allergy to Dulera with anaphylaxis noted; tolerated Decadron and prednisone in the past. Confirmed before prescribing prednisone. - Supportive care with Tylenol at home. - Return precautions reviewed and patient expressed understanding. - Discharged home in stable condition with stable vitals. Final Assessment: Patient with upper respiratory infection and viral pharyngitis. Negative strep, flu, COVID, and RSV tests. Treated with prednisone and supportive care with Tylenol. Discharged home in stable condition. Clinical Impression: - Upper respiratory infection - Viral pharyngitis Disposition: - Discharge: Patient discharged home in stable condition. - Follow-Up: Return precautions reviewed. MDM Components Evaluation: - Number of Differential Diagnoses or Management Options: Upper respiratory infection, viral pharyngitis. - Amount and Complexity of Data Reviewed: Strep test, flu test, COVID test, RSV test. - Risk of Complication and Morbidity or Mortality: Low risk based on negative test results and stable condition. PFSH All Active Problems (Updated 11/27/24 @ 16:39 by JORDY White) URI (upper respiratory infection) (Acute) Pharyngitis (Acute) Mild aortic stenosis (Acute) Menopause (Acute) Absence of menses for greater than 12 months, FSH elevated at 78. Continue to monitor. Any episodes of bleeding from this point forward, 03/29 would be postmenopausal bleeding. Upper back pain (Acute) Pt states r/t L shoulder injury Colon polyp (Acute) Anxiety (Chronic) Asthma (Chronic) AC (acromioclavicular) joint arthritis (Acute) chronic left shoulder pain Vestibular migraine (Chronic) Bicuspid aortic valve determined by imaging (Chronic) Shoulder pain (Acute) Cervical strain (Acute) Scleroderma (Acute) Impingement syndrome of left shoulder (Acute) Bursitis of left shoulder (Acute) Pain of left sternoclavicular joint (Acute) Amplified musculoskeletal pain (Acute) Pelvic pain (Acute) Medical History (Updated 11/27/24 @ 16:39 by JORDY White) Abnormal perimenopausal bleeding September 2022 x1 day. 2 mm endo stripe on sono. Very small fibroid Lupus Left carotid bruit Systolic murmur ADD (attention deficit disorder) Migraine headache with aura History of hypothyroidism presently not on any rx meds only using herbal meds Eczema History of fracture of upper extremity Left Gluten intolerance Castillo neuroma Allergic rhinitis due to pollen (06/06/15) Irritable bowel syndrome (07/09/14) Lactose intolerance (07/09/14) Surgical History (Updated 08/10/24 @ 07:39 by Nany Holder) History of colonoscopy (~07/2024) 10 years Hx of foot surgery Hx of arthroscopy of right knee Status post correction of deviated nasal septum History of tonsillectomy Family History Other Cancer Clotting disorder Diabetes ETOH abuse Hyperlipidemia Hypertension Social History Smoking/Tobacco Use Status: Never Smoking risk assessment performed?: Yes Alcohol Intake: current Alcohol Intake frequency: holidays/special occasions only Alcohol type: hard liquor Details: rare etoh< 1x month Drug use: Never Substance use type: does not use Housing: house Current gender identity: female What type of physical activity do you participate in: bicycling, swimming and running Duration: 30-45 minutes/day Frequency: 3-4 times per week Do you feel safe at home: Yes Do you feel safe in your relationship?: Yes Female Reproductive History Menstrual Age of Menarche: 14 control method: progesterone injection History History 1 Para Hx # Term Pregnancies Multiple births Hx # Pregnancies Ectopic pregnancies AB induced Hx Number of Living Children AB spontaneous 1
--- NOTE | 2024-11-28 10:37 | NUR.NOTE ---
Nursing Note: Pt called to get the results of her covid test that was done yesterday while she was in the ED. I let her know her fluvid results were all negative for covid, flu, and rsv.
== END 2024-11-27 17:17 | disposition home or self-care (01) ==
PROVIDERS: Emergency Provider Physician Assistant; PCP Nurse Practitioner Family
DX: J06.9 Acute upper respiratory infection, unspecified (principal); J02.9 Acute pharyngitis, unspecified
CPT/HCPCS: 99283 ×2; 87880; 87637; 87081; J7512

== ENCOUNTER 2025-03-07 21:38 | Outpatient (REF) | payer MEDICAID, SELFPAY ==
[2025-03-07 22:23] LABS: TSH (W/Ref FT4) 3.75 uIU/mL (0.36-3.74)
[2025-03-08 18:28] LABS: HIV-1/2 Ag & Ab Screen Negative (Negative)
[2025-03-08 18:30] LABS: Hepatitis C Ab w Rflx HCV PCR Negative (Negative)
== END 2025-03-07 21:39 | disposition home or self-care (01) ==
LOC: NCHCN 21:38
PROVIDERS: PCP Nurse Practitioner Family; Visit Provider Family Medicine
DX: E03.8 Other specified hypothyroidism (principal); Z11.4 Encounter for screening for human immunodeficiency virus [HIV]; Z11.59 Encounter for screening for other viral diseases
CPT/HCPCS: 86803; 87389; 84439; 84443